=== PATIENT | male | born 1955 | race African-American/Black ===

== ENCOUNTER 2016-11-30 13:11 | Emergency (ER) | payer OTHER ==
[~2016-11-30] VITALS: Ht 160 cm; Wt 86.0 kg
[~2016-11-30 13:11] MED LIST: CLONIDINE; DEPAKOTE; METF500T4 PO
[2016-11-30] MEDS ORDERED: KETOROLAC 30MG/ML VIAL IM ONE (14:30)
[2016-11-30 14:55] VITALS: BP 133/82
== END 2016-11-30 15:04 | disposition home or self-care (01) ==
LOC: ER 14:54
DX: G62.9 Polyneuropathy, unspecified (principal); E11.9 Type 2 diabetes mellitus without complications; I10 Essential (primary) hypertension; M10.9 Gout, unspecified; F17.210 Nicotine dependence, cigarettes, uncomplicated; Z88.6 Allergy status to analgesic agent; Z79.4 Long term (current) use of insulin; Z79.899 Other long term (current) drug therapy
CPT/HCPCS: 96372; 99283; J1885

== ENCOUNTER 2017-01-04 08:53 | Emergency (ER) | payer OTHER ==
[~2017-01-04] VITALS: Ht 157.5 cm; Wt 91.0 kg
[2017-01-04 09:11] VITALS: BP 142/88
[2017-01-04] MEDS ORDERED: ALBUTEROL (0.083%) 2.5MG/3ML NEB HHN STA (09:26)
[2017-01-04] MEDS ORDERED: PREDNISONE 20MG TABLET PO STA (09:26)
[2017-01-04] MEDS ORDERED: IPRATROPIUM BROMIDE (0.02%) 0.5MG/2.5ML NEB HHN STA (09:26)
== END 2017-01-04 10:20 | disposition home or self-care (01) ==
LOC: ER 08:54
DX: J44.0 Chronic obstructive pulmonary disease with (acute) lower respiratory infection (principal); J20.9 Acute bronchitis, unspecified; I10 Essential (primary) hypertension; E11.9 Type 2 diabetes mellitus without complications; F17.200 Nicotine dependence, unspecified, uncomplicated
CPT/HCPCS: 71010; 94640; 99283; J7512; J7611

== ENCOUNTER 2017-03-23 10:39 | Emergency (ER) | payer OTHER ==
[~2017-03-23] VITALS: Ht 170.2 cm; Wt 80.0 kg
[2017-03-23 12:27] VITALS: BP 116/78
== END 2017-03-23 14:44 | disposition left against medical advice (07) ==
LOC: ER 13:49
DX: M54.5 Low back pain (principal); Z53.21 Procedure and treatment not carried out due to patient leaving prior to being seen by health care provider

== ENCOUNTER 2017-03-25 09:25 | Emergency (ER) | payer OTHER ==
[~2017-03-25] VITALS: Ht 177.8 cm; Wt 86.0 kg
[2017-03-25] MEDS ORDERED: IBUPROFEN 400MG TABLET PO ONE (11:00)
[2017-03-25] MEDS ORDERED: ACETAMINOPHEN 325MG TABLET PO ONE (11:00)
[2017-03-25 12:40] VITALS: BP 116/69
== END 2017-03-25 12:53 | disposition home or self-care (01) ==
LOC: ER 11:00
DX: M54.5 Low back pain (principal); I10 Essential (primary) hypertension; E11.42 Type 2 diabetes mellitus with diabetic polyneuropathy; Z79.84 Long term (current) use of oral hypoglycemic drugs; F17.210 Nicotine dependence, cigarettes, uncomplicated
CPT/HCPCS: 72100; 99284

== ENCOUNTER 2017-08-30 22:08 | Inpatient (IN) | payer MEDICAID ==
[~2017-08-30] VITALS: Ht 157.5 cm; Wt 88.0 kg
[~2017-08-30 22:08] MED LIST changes: -CLONIDINE; -DEPAKOTE
[2017-08-30] MEDS ORDERED: SODIUM CHLORIDE 0.9% 1,000 ML IV ONE (22:24)
[2017-08-30 22:59] LABS: BASOPHILS % 0.5 % (0.0-2.0); EOSINOPHILS % 0.1 % (0.0-5.0); HEMATOCRIT. 38.5 % (42.0-52.0); HEMOGLOBIN. 12.2 g/dL (14.0-18.0); LYMPHOCYTES % 15.8 % (20.0-50.0); MEAN CORPUSCULAR HEMOGLOBIN 25.5 pg (28.0-32.0); MEAN CORPUSCULAR VOLUME 80.8 fL (80.0-94.0); MEAN PLATELET VOLUME 9.1 fl (7.4-10.4); MONOCYTES % 12.3 % (2.0-8.0); NEUTROPHILS % 71.3 % (40.0-76.0); PLATELET 217 x1000/uL (130-400); RED BLOOD CELL COUNT 4.77 mill/uL (4.7-6.1); RED CELL DISTRIBUTION WIDTH 14.9 % (11.6-14.6)
[2017-08-30 23:08] LABS: CHLORIDE 106 mEq/L (98-107)
[2017-08-30 23:10] LABS: ETHANOL BLOOD < 10 mg/dL
[2017-08-30 23:16] LABS: TROPONIN I 0.03 ng/mL (0.00-0.04)
[2017-08-31] MEDS ORDERED: AZITHROMYCIN 500 MG in DEXT 5% WATER 250 ML IV SCH (00:30)
[2017-08-31] MEDS ORDERED: VANCOMYCIN 1,500 MG in DEXT 5% WATER 250 ML IV SCH (00:30)
[2017-08-31 01:09] LABS: CLARITY URINE CLEAR (CLEAR); COLOR URINE YELLOW (YELLOW); KETONES URINE NEGATIVE (NEGATIVE); LEUKOCYTE ESTERASE URINE NEGATIVE (NEGATIVE); NITRITE URINE NEGATIVE (NEGATIVE); OCCULT BLOOD URINE NEGATIVE (NEGATIVE); PROTEIN URINE NEGATIVE (NEGATIVE); SPECIFIC GRAVITY URINE 1.008 (1.005-1.030); UROBILINOGEN URINE 0.2 E.U./dL (0.2-1.0)
[2017-08-31 01:32] LABS: *AMPHETAMINES SCREEN URINE NEGATIVE (NEGATIVE); *BARBITURATES SCREEN URINE NEGATIVE (NEGATIVE); *BENZODIAZEPINES SCREEN URINE NEGATIVE (NEGATIVE); *COCAINE SCREEN URINE PRESUMTIVE POSITIVE (NEGATIVE); CANNABINOID URINE SCREEN NEGATIVE (NEGATIVE); METHADONE URINE SCREEN NEGATIVE (NEGATIVE); OPIATES URINE SCREEN NEGATIVE (NEGATIVE); PHENCYCLIDINE URINE SCREEN NEGATIVE (NEGATIVE)
[2017-08-31] MEDS ORDERED: VANCOMYCIN 1,500 MG in SODIUM CHLORIDE 0.9% 250 ML IV SCH (02:00)
[2017-08-31] MEDS ORDERED: PIPERACILLIN SODIUM/TAZOBACTAM 4.5 G in SODIUM CHLORIDE 0.9% 100 ML IV SCH (02:00)
[2017-08-31 06:00] VITALS: BP 130/73
[2017-08-31 08:00] VITALS: BP 127/67
[2017-08-31] MEDS ORDERED: ACETAMINOPHEN 325MG TABLET PO PRN (10:45)
[2017-08-31] MEDS ORDERED: CLONIDINE 0.1MG TABLET PO PRN (10:45)
[2017-08-31] MEDS ORDERED: IPRATROPIUM/ALBUTEROL 0.5-3(2.5)MG/3ML NEB INH PRN (10:45)
[2017-08-31] MEDS ORDERED: DIPHENHYDRAMINE 50MG/ML VIAL IV PRN (10:45)
[2017-08-31] MEDS ORDERED: HYDROCODONE/ACETAMINOPHEN 5/325MG TABLET PO PRN (10:45)
[2017-08-31] MEDS ORDERED: ONDANSETRON HCL 4MG/2ML VIAL IV PRN (10:45)
[2017-08-31 12:00] VITALS: BP 111/65
[2017-08-31] MEDS ORDERED: DEXTROSE 50% WATER 50ML SYRINGE IV PRN (12:30)
[2017-08-31] MEDS: PIPERACILLIN/TAZ 3.375G PREMIX 50 ML IV SCH ×2 (13:20→20:59)
[2017-08-31 16:00] VITALS: BP 111/65
[2017-08-31] MEDS: INSULIN LISPRO 100 UNITS/ML SUBCUT SCH ×2 (17:15→21:41)
[2017-08-31] MEDS: BLOOD SUGAR DIAGNOSTIC STRIP TEST SCH ×2 (17:35→21:01)
[2017-08-31 20:00] VITALS: BP 127/69
[2017-09-01] VITALS: BP 120/64
[2017-09-01] MEDS ORDERED: VANCOMYCIN 1 G PREMIX 200 ML IV SCH (02:00)
[2017-09-01] MEDS: PIPERACILLIN/TAZ 3.375G PREMIX 50 ML IV SCH (03:56)
[2017-09-01 04:00] VITALS: BP 121/62
[2017-09-01] MEDS: BLOOD SUGAR DIAGNOSTIC STRIP TEST SCH (05:58)
[2017-09-01] MEDS: INSULIN LISPRO 100 UNITS/ML SUBCUT SCH (06:20)
[2017-09-01 08:00] VITALS: BP 124/76
[2017-09-01] MEDS ORDERED: METFORMIN HCL 500MG TABLET PO SCH (09:00)
== END 2017-09-01 08:58 | disposition left against medical advice (07) | DRG 816 ==
LOC: ER 22:27 → 5WST 08-31 01:40 → ENRESERV 08-31 04:32
PROVIDERS: ADMIT Internal Medicine; ATTEND Internal Medicine
DX: T40.5X1A Poisoning by cocaine, accidental (unintentional), initial encounter (principal); J96.00 Acute respiratory failure, unspecified whether with hypoxia or hypercapnia; G92 Toxic encephalopathy; J18.9 Pneumonia, unspecified organism; E87.2 Acidosis; E11.22 Type 2 diabetes mellitus with diabetic chronic kidney disease; E66.9 Obesity, unspecified; F14.10 Cocaine abuse, uncomplicated; F17.210 Nicotine dependence, cigarettes, uncomplicated; Z53.21 Procedure and treatment not carried out due to patient leaving prior to being seen by health care provider; I12.9 Hypertensive chronic kidney disease with stage 1 through stage 4 chronic kidney disease, or unspecified chronic kidney disease; M10.9 Gout, unspecified; N18.9 Chronic kidney disease, unspecified; Y95 Nosocomial condition; Z79.84 Long term (current) use of oral hypoglycemic drugs; Z68.35 Body mass index [BMI] 35.0-35.9, adult; Z71.6 Tobacco abuse counseling
CPT/HCPCS: 36415; 70450; 71045; 80053; 80305; 80307; 80329; 81003; 82962; 83605; 84443; 84484; 85025; 86850; 86900; 87040; 93005; 96365; 96366; 96367; 99285; G0482; J0456; J1200; J1815; J2543; J3370; J7030; J7050; J7060

== ENCOUNTER 2018-08-19 08:40 | Emergency (ER) | payer MEDICAID ==
[~2018-08-19] VITALS: Ht 157.5 cm; Wt 82.0 kg
[~2018-08-19 08:40] MED LIST changes: +METF-414 PO; -METF500T4 PO
[2018-08-19] MEDS ORDERED: ACETAMINOPHEN 325MG TABLET PO ONE (13:45)
[2018-08-19 14:00] VITALS: BP 139/78
[2018-08-19 14:42] LABS: CLARITY URINE CLEAR (CLEAR); COLOR URINE YELLOW (YELLOW); KETONES URINE NEGATIVE (NEGATIVE); LEUKOCYTE ESTERASE URINE NEGATIVE (NEGATIVE); NITRITE URINE NEGATIVE (NEGATIVE); OCCULT BLOOD URINE NEGATIVE (NEGATIVE); PH URINE 6.5 (4.5-8.0); PROTEIN URINE NEGATIVE (NEGATIVE); UROBILINOGEN URINE 0.2 E.U./dL (0.2-1.0)
== END 2018-08-19 15:37 | disposition home or self-care (01) ==
LOC: ER 08:48
DX: M54.5 Low back pain (principal); E11.9 Type 2 diabetes mellitus without complications; F17.210 Nicotine dependence, cigarettes, uncomplicated; G62.9 Polyneuropathy, unspecified; Z79.84 Long term (current) use of oral hypoglycemic drugs; Z88.6 Allergy status to analgesic agent
CPT/HCPCS: 72100; 82962; 99284

== ENCOUNTER 2019-02-01 10:46 | Emergency (ER) | payer MEDICAID ==
[~2019-02-01] VITALS: Ht 157.5 cm; Wt 85.0 kg
[2019-02-01] MEDS ORDERED: HYDROCODONE/ACETAMINOPHEN 10/325MG TABLET PO ONE (12:15)
[2019-02-01 15:16] VITALS: BP 157/91
== END 2019-02-01 15:22 | disposition home or self-care (01) ==
LOC: ER 10:46
DX: S69.91XA Unspecified injury of right wrist, hand and finger(s), initial encounter (principal); E11.9 Type 2 diabetes mellitus without complications; E78.00 Pure hypercholesterolemia, unspecified; M10.9 Gout, unspecified; I10 Essential (primary) hypertension; F17.210 Nicotine dependence, cigarettes, uncomplicated; X58.XXXA Exposure to other specified factors, initial encounter; Y93.9 Activity, unspecified; Y92.9 Unspecified place or not applicable; Z88.6 Allergy status to analgesic agent
CPT/HCPCS: 73110; 73130; 99283

== ENCOUNTER 2019-02-19 10:42 | Emergency (ER) | payer MEDICAID ==
[~2019-02-19] VITALS: Ht 167.6 cm; Wt 84.0 kg
[2019-02-19 10:59] VITALS: BP 150/94
== END 2019-02-19 12:36 | disposition home or self-care (01) ==
LOC: ER 10:42
DX: M10.9 Gout, unspecified (principal); I10 Essential (primary) hypertension; E78.00 Pure hypercholesterolemia, unspecified; E11.9 Type 2 diabetes mellitus without complications; Z88.6 Allergy status to analgesic agent
CPT/HCPCS: 99282

== ENCOUNTER 2019-11-22 08:27 | Emergency (ER) | payer MEDICAID ==
[~2019-11-22] VITALS: Ht 157.5 cm; Wt 83.0 kg
[2019-11-22] MEDS ORDERED: BACITRACIN ZINC OINT UDPKT TOP ONE (09:00)
[2019-11-22] MEDS ORDERED: KETOROLAC 30MG/ML VIAL IM ONE (09:00)
[2019-11-22] MEDS ORDERED: TETANUS, DIPHTHERIA, PERTUSSIS VAC/PF 0.5ML (>7YR OLD) IM ONE (09:00)
[2019-11-22] MEDS ORDERED: AMOXICILLIN/POTASSIUM CLAVULANATE 500/125MG TAB PO ONE (09:30)
[2019-11-22 10:00] VITALS: BP 139/64
== END 2019-11-22 10:30 | disposition home or self-care (01) ==
LOC: ER 08:27
DX: S62.656A Nondisplaced fracture of middle phalanx of right little finger, initial encounter for closed fracture (principal); E11.9 Type 2 diabetes mellitus without complications; E78.00 Pure hypercholesterolemia, unspecified; I10 Essential (primary) hypertension; Z79.84 Long term (current) use of oral hypoglycemic drugs; W22.8XXA Striking against or struck by other objects, initial encounter; Y93.89 Activity, other specified; Y92.810 Car as the place of occurrence of the external cause
CPT/HCPCS: 29130; 73140; 90471; 90715; 96372; 99284; J1885

== ENCOUNTER 2021-02-04 18:41 | Emergency (ER) | payer MEDICAID ==
[~2021-02-04] VITALS: Ht 175.3 cm; Wt 80.0 kg
[2021-02-04 18:52] VITALS: BP 130/88
== END 2021-02-06 07:33 | disposition left against medical advice (07) ==
LOC: ER 18:41
DX: Z13.9 Encounter for screening, unspecified (principal)
CPT/HCPCS: 99283

== ENCOUNTER 2021-05-20 16:37 | Emergency (ER) | payer MEDICAID ==
[~2021-05-20] VITALS: Ht 170.2 cm; Wt 80.0 kg
[2021-05-20 18:09] LABS: BASOPHILS % 0.6 % (0.0-2.0); HEMATOCRIT. 32.7 % (42.0-52.0); HEMOGLOBIN. 10.4 g/dL (14.0-18.0); LYMPHOCYTES % 9.2 % (20.0-50.0); MEAN CORPUSCULAR HEMOGLOBIN 25.3 pg (28.0-32.0); MEAN CORPUSCULAR VOLUME 79.7 fL (80.0-94.0); MEAN PLATELET VOLUME 8.9 fl (7.4-10.4); MONOCYTES % 2.5 % (2.0-8.0); NEUTROPHILS % 87.7 % (40.0-76.0); PLATELET 250 x1000/uL (130-400); RED CELL DISTRIBUTION WIDTH 16.3 % (11.6-14.6)
[2021-05-20 18:14] LABS: CHLORIDE 107 mEq/L (98-107)
[2021-05-20 20:06] VITALS: BP 110/71
== END 2021-05-20 20:47 | disposition home or self-care (01) ==
LOC: ER 16:37
DX: R07.89 Other chest pain (principal); E11.9 Type 2 diabetes mellitus without complications; E78.00 Pure hypercholesterolemia, unspecified; I10 Essential (primary) hypertension
CPT/HCPCS: 36415; 71045; 80053; 83880; 84484; 85025; 93005; 99285

== ENCOUNTER 2021-08-12 11:41 | Emergency (ER) | payer MEDICAID, OTHER ==
[~2021-08-12] VITALS: Ht 177.8 cm; Wt 113.0 kg
[2021-08-12] MEDS ORDERED: ALBUTEROL (0.5%) 2.5MG/0.5ML NEB HHN ONE (12:30)
[2021-08-12 12:47] LABS: BASOPHILS % 0.7 % (0.0-2.0); EOSINOPHILS % 0.7 % (0.0-5.0); HEMATOCRIT. 35.2 % (42.0-52.0); HEMOGLOBIN. 11.2 g/dL (14.0-18.0); LYMPHOCYTES % 22.1 % (20.0-50.0); MEAN CORPUSCULAR VOLUME 78.5 fL (80.0-94.0); MEAN PLATELET VOLUME 8.7 fl (7.4-10.4); MONOCYTES % 10.7 % (2.0-8.0); NEUTROPHILS % 65.8 % (40.0-76.0); PLATELET 239 x1000/uL (130-400); RED BLOOD CELL COUNT 4.48 mill/uL (4.7-6.1); RED CELL DISTRIBUTION WIDTH 14.9 % (11.6-14.6)
[2021-08-12 12:56] LABS: CHLORIDE 109 mEq/L (98-107)
[2021-08-12 13:00] LABS: ETHANOL BLOOD < 10 mg/dL
[2021-08-12] MEDS ORDERED: FUROSEMIDE 40MG TABLET PO ONE (13:15)
[2021-08-12] MEDS ORDERED: ASPIRIN 81MG TABLET PO SCH (13:15)
[2021-08-12 14:40] LABS: CLARITY URINE CLEAR (CLEAR); COLOR URINE YELLOW (YELLOW); KETONES URINE TRACE (NEGATIVE); LEUKOCYTE ESTERASE URINE NEGATIVE (NEGATIVE); NITRITE URINE NEGATIVE (NEGATIVE); OCCULT BLOOD URINE NEGATIVE (NEGATIVE); PROTEIN URINE NEGATIVE (NEGATIVE); SPECIFIC GRAVITY URINE 1.022 (1.005-1.030)
[2021-08-12 15:02] LABS: *AMPHETAMINES SCREEN URINE NEGATIVE (NEGATIVE); *BARBITURATES SCREEN URINE NEGATIVE (NEGATIVE); *BENZODIAZEPINES SCREEN URINE NEGATIVE (NEGATIVE); *COCAINE SCREEN URINE PRESUMTIVE POSITIVE (NEGATIVE); METHADONE URINE SCREEN NEGATIVE (NEGATIVE); OPIATES URINE SCREEN NEGATIVE (NEGATIVE)
[2021-08-12 15:03] LABS: CANNABINOID URINE SCREEN NEGATIVE (NEGATIVE); PHENCYCLIDINE URINE SCREEN NEGATIVE (NEGATIVE)
[2021-08-12] MEDS ORDERED: ALBU05 NEB (15:23)
[2021-08-12 16:00] VITALS: BP 108/60
[2021-08-13] MEDS ORDERED: FUROSEMIDE 40MG/4ML VIAL IVP SCH (09:00)
== END 2021-08-12 16:05 | disposition home or self-care (01) ==
LOC: ER 11:41
DX: R06.03 Acute respiratory distress (principal); F14.10 Cocaine abuse, uncomplicated; Z72.0 Tobacco use
CPT/HCPCS: 36415; 71045; 80053; 80305; 80320; 81003; 83880; 84484; 85025; 93005; 94640; 99285; Z7610; G0480

== ENCOUNTER 2021-08-19 01:55 | Inpatient (IN) | payer OTHER ==
[~2021-08-19] VITALS: Ht 165.1 cm; Wt 92.5 kg
[~2021-08-19 01:55] MED LIST changes: +ALBU05 NEB
[2021-08-19] MEDS ORDERED: IPRATROPIUM BROMIDE (0.02%) 0.5MG/2.5ML NEB HHN STA (02:11)
[2021-08-19] MEDS ORDERED: METHYLPREDNISOLONE SOD SUCC 125 MG/2 ML VIAL IV STA (02:11)
[2021-08-19] MEDS ORDERED: MAGNESIUM 2 G PREMIX 50 ML IV ONE (02:15)
[2021-08-19] MEDS ORDERED: ALBUTEROL (0.083%) 2.5MG/3ML NEB HHN SCH (02:30)
[2021-08-19] MEDS ORDERED: METHYLPREDNISOLONE SOD SUCC 125 MG/2 ML VIAL IM ONE (03:45)
[2021-08-19 04:16] LABS: BASOPHILS % 0.5 % (0.0-2.0); EOSINOPHILS % 0.5 % (0.0-5.0); HEMATOCRIT. 32.5 % (42.0-52.0); HEMOGLOBIN. 10.3 g/dL (14.0-18.0); LYMPHOCYTES % 27.3 % (20.0-50.0); MEAN CORPUSCULAR HEMOGLOBIN 25.3 pg (28.0-32.0); MEAN CORPUSCULAR VOLUME 79.6 fL (80.0-94.0); MEAN PLATELET VOLUME 9.1 fl (7.4-10.4); MONOCYTES % 9.9 % (2.0-8.0); NEUTROPHILS % 61.8 % (40.0-76.0); PLATELET 186 x1000/uL (130-400); RED BLOOD CELL COUNT 4.08 mill/uL (4.7-6.1); RED CELL DISTRIBUTION WIDTH 15.6 % (11.6-14.6)
[2021-08-19 04:23] LABS: CHLORIDE 111 mEq/L (98-107)
[2021-08-19 06:30] VITALS: BP 150/86
[2021-08-19] MEDS ORDERED: HYDROCODONE/ACETAMINOPHEN 5/325MG TABLET PO PRN (07:15)
[2021-08-19] MEDS: INSULIN LISPRO 100 UNITS/ML SUBCUT SCH ×4 (07:15→20:59)
[2021-08-19] MEDS ORDERED: DEXTROSE 50% WATER 50ML SYRINGE IV PRN (07:15)
[2021-08-19 08:00] VITALS: BP 136/72
[2021-08-19] MEDS ORDERED: NALOXONE HCL 0.4MG/ML VIAL IV PRN ×2 (08:00)
[2021-08-19] MEDS ORDERED: IPRATROPIUM/ALBUTEROL 0.5-3(2.5)MG/3ML NEB HHN SCH (08:00)
[2021-08-19] MEDS ORDERED: NON FORMULARY PATIENT HOME MED XX SCH (09:00)
[2021-08-19] MEDS: CARVEDILOL 3.125 MG TABLET PO SCH ×2 (09:41→20:58)
[2021-08-19] MEDS: LISINOPRIL 20MG TABLET PO SCH (09:41)
[2021-08-19] MEDS: BLOOD SUGAR DIAGNOSTIC STRIP TEST SCH ×3 (12:13→20:59)
[2021-08-19 16:00] VITALS: BP 147/81
[2021-08-19] MEDS: ALBUTEROL (0.083%) 2.5MG/3ML NEB HHN SCH (16:05)
[2021-08-19] MEDS: BUDESONIDE 0.5MG/2ML NEB HHN SCH (16:06)
[2021-08-19] MEDS: FUROSEMIDE 40MG/4ML VIAL IVP SCH (17:46)
[2021-08-19 19:53] VITALS: BP 135/61
[2021-08-19] MEDS ORDERED: ENOXAPARIN 40MG/0.4ML SYR SUBCUT SCH (20:00)
[2021-08-20] VITALS: BP 122/83
[2021-08-20 04:00] VITALS: BP 129/74
[2021-08-20] MEDS: FUROSEMIDE 40MG/4ML VIAL IVP SCH (06:31)
[2021-08-20] MEDS: INSULIN LISPRO 100 UNITS/ML SUBCUT SCH (06:31)
[2021-08-20] MEDS: BLOOD SUGAR DIAGNOSTIC STRIP TEST SCH (06:31)
[2021-08-20 08:00] VITALS: BP 120/60
[2021-08-20] MEDS: CARVEDILOL 3.125 MG TABLET PO SCH (08:46)
[2021-08-20] MEDS: LISINOPRIL 20MG TABLET PO SCH (08:46)
[2021-08-20 09:21] VITALS: BP 120/60
[2021-08-20] MEDS: ALBUTEROL (0.083%) 2.5MG/3ML NEB HHN SCH (09:30)
[2021-08-20] MEDS: BUDESONIDE 0.5MG/2ML NEB HHN SCH (09:30)
[2021-08-20] MEDS ORDERED: IPRA3AMP9 NEB (10:20)
== END 2021-08-20 11:10 | disposition home or self-care (01) | DRG 811 ==
LOC: ER 01:55 → MICUSO 03:12 → EDBEDREQTM 03:15 → EDBEDREQ 03:15 → 5WST 04:35
PROVIDERS: ADMIT Internal Medicine; ATTEND Internal Medicine
DX: T78.40XA Allergy, unspecified, initial encounter (principal); N17.0 Acute kidney failure with tubular necrosis; E44.1 Mild protein-calorie malnutrition; J44.1 Chronic obstructive pulmonary disease with (acute) exacerbation; E11.9 Type 2 diabetes mellitus without complications; D64.9 Anemia, unspecified; E66.9 Obesity, unspecified; Z68.33 Body mass index [BMI] 33.0-33.9, adult; E78.00 Pure hypercholesterolemia, unspecified; I50.9 Heart failure, unspecified; I11.0 Hypertensive heart disease with heart failure; E87.8 Other disorders of electrolyte and fluid balance, not elsewhere classified; Z20.822 Contact with and (suspected) exposure to COVID-19; R74.01 Elevation of levels of liver transaminase levels; I25.10 Atherosclerotic heart disease of native coronary artery without angina pectoris; E78.5 Hyperlipidemia, unspecified; F14.90 Cocaine use, unspecified, uncomplicated; F17.210 Nicotine dependence, cigarettes, uncomplicated; X58.XXXA Exposure to other specified factors, initial encounter; Z79.899 Other long term (current) drug therapy; Z71.51 Drug abuse counseling and surveillance of drug abuser; Z71.3 Dietary counseling and surveillance; Z95.1 Presence of aortocoronary bypass graft
CPT/HCPCS: 36415; 71045; 80053; 82962; 83036; 83880; 84484; 85025; 87426; 93005; 93306; 99285; J1650; J1815; J1940; J2930; J7626

== ENCOUNTER 2021-08-24 11:18 | Emergency (ER) | payer OTHER ==
[~2021-08-24] VITALS: Ht 172.7 cm; Wt 86.0 kg
[~2021-08-24 11:18] MED LIST changes: +IPRA3AMP9 NEB
[2021-08-24] MEDS ORDERED: IPRATROPIUM BROMIDE (0.02%) 0.5MG/2.5ML NEB HHN STA (11:25)
[2021-08-24] MEDS ORDERED: METHYLPREDNISOLONE SOD SUCC 125 MG/2 ML VIAL IV STA (11:25)
[2021-08-24] MEDS ORDERED: MAGNESIUM 2 G PREMIX 50 ML IV ONE (11:30)
[2021-08-24] MEDS: ALBUTEROL (0.083%) 2.5MG/3ML NEB HHN SCH ×3 (11:35→12:11)
[2021-08-24 12:24] LABS: BASOPHILS % 0.4 % (0.0-2.0); EOSINOPHILS % 0.4 % (0.0-5.0); HEMATOCRIT. 37.3 % (42.0-52.0); HEMOGLOBIN. 11.8 g/dL (14.0-18.0); LYMPHOCYTES % 17.2 % (20.0-50.0); MEAN CORPUSCULAR HEMOGLOBIN 25.2 pg (28.0-32.0); MEAN CORPUSCULAR VOLUME 79.9 fL (80.0-94.0); MEAN PLATELET VOLUME 9.2 fl (7.4-10.4); MONOCYTES % 10.5 % (2.0-8.0); NEUTROPHILS % 71.5 % (40.0-76.0); PLATELET 189 x1000/uL (130-400); RED BLOOD CELL COUNT 4.67 mill/uL (4.7-6.1); RED CELL DISTRIBUTION WIDTH 15.6 % (11.6-14.6)
[2021-08-24 12:31] LABS: PROTHROMBIN TIME 10.3 sec (9.6-11.0)
[2021-08-24 12:36] LABS: CHLORIDE 113 mEq/L (98-107)
[2021-08-24 13:00] VITALS: BP 153/77
[2021-08-24] MEDS ORDERED: PIPERACILLIN/TAZ 3.375G PREMIX 50 ML IV SCH (13:00)
[2021-08-24] MEDS ORDERED: FUROSEMIDE 40MG/4ML VIAL IVP NR (13:00)
[2021-08-24 14:14] LABS: CLARITY URINE CLEAR (CLEAR); COLOR URINE YELLOW (YELLOW); KETONES URINE NEGATIVE (NEGATIVE); LEUKOCYTE ESTERASE URINE NEGATIVE (NEGATIVE); NITRITE URINE NEGATIVE (NEGATIVE); OCCULT BLOOD URINE NEGATIVE (NEGATIVE); PH URINE 5.5 (4.5-8.0); PROTEIN URINE NEGATIVE (NEGATIVE); SPECIFIC GRAVITY URINE 1.021 (1.005-1.030); UROBILINOGEN URINE 0.2 E.U./dL (0.2-1.0)
[2021-08-29] MEDS ORDERED: CLOP75TA15 PO (12:44)
[2021-08-29] MEDS ORDERED: DILT120C11 MT (12:44)
[2021-08-29] MEDS ORDERED: ASPI-1497 MT (12:44)
== END 2021-08-24 14:15 | disposition left against medical advice (07) ==
LOC: ER 11:31
DX: A41.9 Sepsis, unspecified organism (principal); J44.1 Chronic obstructive pulmonary disease with (acute) exacerbation; R06.03 Acute respiratory distress; I11.0 Hypertensive heart disease with heart failure; I50.9 Heart failure, unspecified; I25.10 Atherosclerotic heart disease of native coronary artery without angina pectoris; E11.9 Type 2 diabetes mellitus without complications; E78.00 Pure hypercholesterolemia, unspecified; N28.9 Disorder of kidney and ureter, unspecified; F17.210 Nicotine dependence, cigarettes, uncomplicated; D50.9 Iron deficiency anemia, unspecified; Z95.1 Presence of aortocoronary bypass graft; Z99.81 Dependence on supplemental oxygen; Z79.84 Long term (current) use of oral hypoglycemic drugs
CPT/HCPCS: 36415; 71045; 80053; 81003; 83605; 83880; 84145; 84484; 85025; 85610; 87040; 87086; 93005; 94640; 96365; 96375; 99291; J1940; J2930; J3475; Z7610

== ENCOUNTER 2021-09-09 10:46 | Emergency (ER) | payer OTHER ==
[~2021-09-09] VITALS: Ht 160 cm; Wt 86.0 kg
[~2021-09-09 10:46] MED LIST changes: +ASPI-1497 MT; +CLOP75TA15 PO; +DILT120C11 MT
[2021-09-09] MEDS ORDERED: COLC0.6C3 MT (11:26)
[2021-09-09] MEDS ORDERED: HYDR-4001 MT (11:26)
[2021-09-09] MEDS ORDERED: COLCHICINE 0.6MG TABLET PO ONE (11:30)
[2021-09-09] MEDS ORDERED: HYDROCODONE/ACETAMINOPHEN 5/325MG TABLET PO ONE (11:30)
[2021-09-09 12:40] VITALS: BP 144/88
== END 2021-09-09 12:20 | disposition home or self-care (01) ==
LOC: ER 10:46
DX: M79.642 Pain in left hand (principal); F14.10 Cocaine abuse, uncomplicated; J44.1 Chronic obstructive pulmonary disease with (acute) exacerbation; E11.9 Type 2 diabetes mellitus without complications; I10 Essential (primary) hypertension; Z98.890 Other specified postprocedural states
CPT/HCPCS: 99283

== ENCOUNTER 2021-09-14 15:59 | Inpatient (IN) | payer OTHER ==
[~2021-09-14] VITALS: Ht 172.7 cm; Wt 100.0 kg
[~2021-09-14 15:59] MED LIST changes: +COLC0.6C3 MT; +HYDR-4001 MT
[2021-09-14] MEDS ORDERED: ALBUTEROL (0.083%) 2.5MG/3ML NEB HHN STA (17:12)
[2021-09-14] MEDS ORDERED: IPRATROPIUM BROMIDE (0.02%) 0.5MG/2.5ML NEB HHN STA (17:12)
[2021-09-14] MEDS ORDERED: METHYLPREDNISOLONE SOD SUCC 125 MG/2 ML VIAL IV STA (17:12)
[2021-09-14] MEDS ORDERED: MAGNESIUM 2 G PREMIX 50 ML IV ONE (17:15)
[2021-09-14] MEDS ORDERED: CEFTRIAXONE 1 G PREMIX 50 ML IV ONE (17:30)
[2021-09-14] MEDS ORDERED: AZITHROMYCIN 500MG/250ML 250 ML IV ONE (17:30)
[2021-09-14 18:53] LABS: BASOPHILS % 0.9 % (0.0-2.0); EOSINOPHILS % 0.8 % (0.0-5.0); HEMATOCRIT. 34.6 % (42.0-52.0); HEMOGLOBIN. 11.3 g/dL (14.0-18.0); LYMPHOCYTES % 26.6 % (20.0-50.0); MEAN CORPUSCULAR HEMOGLOBIN 25.1 pg (28.0-32.0); MEAN CORPUSCULAR VOLUME 76.6 fL (80.0-94.0); MEAN PLATELET VOLUME 8.8 fl (7.4-10.4); MONOCYTES % 12.7 % (2.0-8.0); PLATELET 257 x1000/uL (130-400); RED BLOOD CELL COUNT 4.52 mill/uL (4.7-6.1); RED CELL DISTRIBUTION WIDTH 15.3 % (11.6-14.6)
[2021-09-14 18:56] LABS: CHLORIDE 107 mEq/L (98-107)
[2021-09-14] MEDS ORDERED: FUROSEMIDE 20MG/2ML VIAL IVP ONE (20:00)
[2021-09-15 08:34] VITALS: BP 122/84
== END 2021-09-15 08:46 | disposition left against medical advice (07) | DRG 140 ==
LOC: ER 15:59 → EDBEDREQ 18:49 → MICUSO 20:00 → EDBEDREQTM 20:02 → EDBEDREQ 20:02 → EDBEDREQSVC 20:02
PROVIDERS: ADMIT Internal Medicine; ATTEND Internal Medicine
DX: J44.1 Chronic obstructive pulmonary disease with (acute) exacerbation (principal); J96.00 Acute respiratory failure, unspecified whether with hypoxia or hypercapnia; I13.0 Hypertensive heart and chronic kidney disease with heart failure and stage 1 through stage 4 chronic kidney disease, or unspecified chronic kidney disease; I50.22 Chronic systolic (congestive) heart failure; E11.22 Type 2 diabetes mellitus with diabetic chronic kidney disease; Z20.822 Contact with and (suspected) exposure to COVID-19; E78.00 Pure hypercholesterolemia, unspecified; F14.90 Cocaine use, unspecified, uncomplicated; F17.200 Nicotine dependence, unspecified, uncomplicated; N18.9 Chronic kidney disease, unspecified; Z53.29 Procedure and treatment not carried out because of patient's decision for other reasons; Y92.89 Other specified places as the place of occurrence of the external cause
CPT/HCPCS: 36415; 71045; 80053; 82962; 83880; 84484; 85025; 87426; 93005; 94640; J0456; J0696; J1940; J2930; J3475

== ENCOUNTER 2021-09-19 14:32 | Emergency (ER) | payer OTHER ==
[~2021-09-19] VITALS: Ht 160 cm; Wt 81.0 kg
[2021-09-19] MEDS ORDERED: IPRATROPIUM BROMIDE (0.02%) 0.5MG/2.5ML NEB HHN STA (15:09)
[2021-09-19] MEDS ORDERED: ALBUTEROL (0.083%) 2.5MG/3ML NEB HHN STA (15:09)
[2021-09-19] MEDS ORDERED: METHYLPREDNISOLONE SOD SUCC 125 MG/2 ML VIAL IV STA (15:09)
[2021-09-19] MEDS ORDERED: ASPIRIN 81MG TABLET PO ONE (15:15)
[2021-09-19] MEDS ORDERED: NITROGLYCERIN OINT 1GM/INCH UDPKT TD ONE (15:15)
[2021-09-19 15:24] LABS: BASOPHILS % 0.7 % (0.0-2.0); EOSINOPHILS % 0.8 % (0.0-5.0); HEMATOCRIT. 34.7 % (42.0-52.0); HEMOGLOBIN. 11.4 g/dL (14.0-18.0); LYMPHOCYTES % 21.3 % (20.0-50.0); MEAN CORPUSCULAR HEMOGLOBIN 25.3 pg (28.0-32.0); MEAN CORPUSCULAR VOLUME 77.4 fL (80.0-94.0); MONOCYTES % 6.8 % (2.0-8.0); NEUTROPHILS % 70.4 % (40.0-76.0); PLATELET 285 x1000/uL (130-400); RED BLOOD CELL COUNT 4.48 mill/uL (4.7-6.1); RED CELL DISTRIBUTION WIDTH 15.4 % (11.6-14.6)
[2021-09-19 15:30] LABS: CHLORIDE 103 mEq/L (98-107)
[2021-09-19] MEDS ORDERED: INSULIN REGULAR (HUMULIN R) 300UNITS/3ML VIAL SUBCUT NR (16:00)
[2021-09-19] MEDS ORDERED: ALBU90AE INH (16:32)
[2021-09-19] MEDS ORDERED: P20 MT (16:32)
[2021-09-19 16:47] LABS: *AMPHETAMINES SCREEN URINE NEGATIVE (NEGATIVE); *BARBITURATES SCREEN URINE NEGATIVE (NEGATIVE)
[2021-09-19 16:48] LABS: *BENZODIAZEPINES SCREEN URINE NEGATIVE (NEGATIVE); *COCAINE SCREEN URINE PRESUMTIVE POSITIVE (NEGATIVE); METHADONE URINE SCREEN NEGATIVE (NEGATIVE); OPIATES URINE SCREEN NEGATIVE (NEGATIVE); PHENCYCLIDINE URINE SCREEN NEGATIVE (NEGATIVE)
[2021-09-19 16:49] LABS: CANNABINOID URINE SCREEN NEGATIVE (NEGATIVE)
[2021-09-19 16:51] VITALS: BP 110/63
[2021-09-23] MEDS ORDERED: P20 MT (11:36)
[2021-09-23] MEDS ORDERED: GUAI600T26 MT (11:36)
[2021-09-23] MEDS ORDERED: ALBU90AE INH (11:36)
[2021-09-23] MEDS ORDERED: IPRA3AMP9 NEB (11:36)
[2021-09-23] MEDS ORDERED: FURO-152 MT (11:37)
[2021-09-23] MEDS ORDERED: LOSA25TA26 MT (11:37)
[2021-09-23] MEDS ORDERED: CARV12.545 MT (11:37)
== END 2021-09-19 16:54 | disposition home or self-care (01) ==
LOC: ER 14:58
DX: J44.1 Chronic obstructive pulmonary disease with (acute) exacerbation (principal); E11.65 Type 2 diabetes mellitus with hyperglycemia; N28.9 Disorder of kidney and ureter, unspecified; D50.9 Iron deficiency anemia, unspecified; E78.00 Pure hypercholesterolemia, unspecified; I25.10 Atherosclerotic heart disease of native coronary artery without angina pectoris; F14.10 Cocaine abuse, uncomplicated; I10 Essential (primary) hypertension; F17.210 Nicotine dependence, cigarettes, uncomplicated; Z79.84 Long term (current) use of oral hypoglycemic drugs; Z95.1 Presence of aortocoronary bypass graft; Z79.82 Long term (current) use of aspirin
CPT/HCPCS: 36415; 71045; 80053; 80305; 82962; 83690; 83880; 84484; 85025; 85379; 93005; 94640; 96374; 99285; J1815; J2930

== ENCOUNTER 2024-03-06 02:39 | Inpatient (IN) | payer MEDICARE, MEDICAID ==
[~2024-03-06] VITALS: Ht 160 cm; Wt 79.5 kg
[~2024-03-06 02:39] MED LIST changes: +ALBU90AE INH; +AMLO2.5T45 PO; +ATOR20TA PO; +CARV12.545 MT; +CLOP-31 MT; -COLC0.6C3 MT; -DILT120C11 MT; +FURO-152 MT; +GUAI600T26 MT; +LOSA25TA26 MT; +P20 MT
[2024-03-06] MEDS: ASPIRIN 325MG EC TABLET PO NR (03:32)
[2024-03-06 03:40] VITALS: PULSE 94; RESP 22; O2SAT 98
[2024-03-06] MEDS: ALBUTEROL (0.5%) 2.5MG/0.5ML NEB HHN NR (03:40)
[2024-03-06] MEDS: MORPHINE SULFATE 4 MG/ML INJ (FOR IV/IM USE) IV ONE (03:45)
[2024-03-06] MEDS: NITROGLYCERIN 0.4MG TABLET SL SL ONE (03:48)
[2024-03-06 03:58] LABS: BASOPHILS % 0.6 % (0.0-2.0); DIFFERENTIAL COMMENT 0; EOSINOPHILS % 0.7 % (0.0-5.0); HEMOGLOBIN. 12.4 g/dL (14.0-18.0); MEAN CORPUSCULAR HEMOGLOBIN 24.9 pg (28.0-32.0); MEAN CORPUSCULAR HGB CONC 31.9 g/dL (31.0-37.0); MEAN PLATELET VOLUME 8.5 fl (7.4-10.4); MONOCYTES % 11.7 % (2.0-8.0); PLATELET 250 x1000/uL (130-400); RED BLOOD CELL COUNT 4.99 mill/uL (4.7-6.1); RED CELL DISTRIBUTION WIDTH 17.1 % (11.6-14.6)
[2024-03-06 04:10] LABS: PARTIAL THROMBOPLASTIN TIME 25.4 sec (23.4-31.0)
[2024-03-06 04:19] LABS: CARBON DIOXIDE 21 mEq/L (21-32); CHLORIDE 106 mEq/L (98-107); POTASSIUM 4.3 mEq/L (3.5-5.1); SODIUM 140 mEq/L (136-145)
[2024-03-06 04:20] LABS: CALCIUM 10.3 mg/dL (8.7-10.4)
[2024-03-06 04:25] LABS: ETHANOL BLOOD 34 mg/dL (<10); GLUCOSE 109 mg/dL (70-105); TROPONIN I HIGH SENSITIVITY 41 ng/L (3.0-53); UREA NITROGEN BLOOD 21 mg/dL (9-23)
[2024-03-06 04:52] LABS: CREATININE 1.6 mg/dL (0.6-1.3)
[2024-03-06] MEDS ORDERED: ONDANSETRON HCL 4MG/2ML INJ IV PRN (06:30)
[2024-03-06] MEDS ORDERED: IPRATROPIUM/ALBUTEROL 0.5-3(2.5)MG/3ML NEB NEB PRN (06:30)
[2024-03-06] MEDS ORDERED: ZOLPIDEM TARTRATE 5MG TABLET PO PRN (06:30)
[2024-03-06] MEDS ORDERED: GUAIFENESIN 200MG/10ML SUGAR FREE UDC PO PRN (06:30)
[2024-03-06] MEDS ORDERED: DOCUSATE SODIUM 100MG CAPSULE PO PRN (06:30)
[2024-03-06] MEDS ORDERED: ACETAMINOPHEN 325MG TABLET PO PRN ×2 (06:30)
[2024-03-06] MEDS ORDERED: CLONIDINE 0.1MG TABLET PO PRN (06:30)
[2024-03-06] MEDS ORDERED: DEXTROSE 50% WATER 50ML SYRINGE IV PRN (06:30)
[2024-03-06] MEDS: SUCRALFATE 1G TABLET PO SCH (06:57)
[2024-03-06] MEDS: BLOOD SUGAR DIAGNOSTIC STRIP TEST SCH (08:23)
[2024-03-06] MEDS: INSULIN LISPRO 100 UNITS/ML SUBCUT SCH (08:24)
[2024-03-06 08:45] LABS: IRON 61 ug/dL (65-175)
[2024-03-06 08:46] LABS: TRIGLYCERIDE 226 mg/dL (0-150)
[2024-03-06 08:47] LABS: LDL CHOLESTEROL 141 mg/dL (5-100)
[2024-03-06 08:48] LABS: CHOLESTEROL 208 mg/dL (<200); HDL CHOLESTEROL 34 mg/dL (>55); TOTAL IRON BINDING CAPACITY 371 ug/dl (250-425)
[2024-03-06 08:52] LABS: FOLIC ACID (FOLATE) SERUM > 20.00 ng/mL (>5.38)
[2024-03-06 08:53] LABS: T4 FREE 1.56 ng/dL (0.89-1.76); THYROID STIMULATING HORMONE 1.11 uIU/mL (0.55-4.78)
[2024-03-06 09:24] LABS: VITAMIN B12 SERUM 766 pg/mL (211-911)
[2024-03-06] MEDS: FAMOTIDINE 20MG TABLET PO SCH (10:41)
[2024-03-06] MEDS: CLOPIDOGREL 75MG TABLET PO SCH (10:41)
[2024-03-06] MEDS: ASPIRIN 81MG EC TABLET PO SCH (10:41)
[2024-03-06] MEDS: LOSARTAN 50 MG TABLET PO SCH (10:41)
[2024-03-06] MEDS: THIAMINE HCL 100MG TABLET PO SCH (10:41)
[2024-03-06] MEDS: MULTIVITAMINS,THER W-MINERALS TABLET PO SCH (10:41)
[2024-03-06] MEDS: FOLIC ACID 1MG TABLET PO SCH (10:41)
[2024-03-06] MEDS: ENOXAPARIN 40MG/0.4ML SYR SUBCUT SCH (10:42)
[2024-03-06 16:00] VITALS: BP 119/76; PULSE 79; RESP 16; TEMP 36.55848; O2SAT 99
[2024-03-06] MEDS: NITROGLYCERIN 0.4MG TABLET SL SL PRN (16:16)
[2024-03-06] MEDS: KETOROLAC 30MG/ML VIAL IV PRN (16:30)
[2024-03-06] MEDS: HYDROCODONE/ACETAMINOPHEN 5/325MG TABLET PO PRN (17:16)
[2024-03-06 17:30] VITALS: BP 109/68; PULSE 68; RESP 21; TEMP 36.9184
[2024-03-06 20:00] VITALS: BP 115/72; PULSE 74; RESP 13; TEMP 36.61404; O2SAT 98
[2024-03-06 22:43] LABS: CREATINE KINASE MB FRACTION 2.3 ng/mL (0.5-3.6)
[2024-03-07] VITALS: BP 108/63; PULSE 79; RESP 22; TEMP 36.78072; O2SAT 98
[2024-03-07 01:30] LABS: CREATINE KINASE MB FRACTION 2.1 ng/mL (0.5-3.6)
[2024-03-07 04:00] VITALS: BP 126/67; PULSE 82; RESP 12; TEMP 36.78072; O2SAT 98
[2024-03-07 06:22] LABS: *AMPHETAMINES SCREEN URINE NEGATIVE (NEGATIVE); *BARBITURATES SCREEN URINE NEGATIVE (NEGATIVE); *BENZODIAZEPINES SCREEN URINE NEGATIVE (NEGATIVE)
[2024-03-07 06:23] LABS: *COCAINE SCREEN URINE PRESUMPTIVE POSITIVE (NEGATIVE); CANNABINOID URINE SCREEN NEGATIVE (NEGATIVE); ECSTASY MDMA SCREEN URINE NEGATIVE (NEGATIVE); METHADONE URINE SCREEN NEGATIVE (NEGATIVE); OPIATES URINE SCREEN PRESUMPTIVE POSITIVE (NEGATIVE); PHENCYCLIDINE URINE SCREEN NEGATIVE (NEGATIVE)
[2024-03-07 08:00] VITALS: BP 143/79; PULSE 69; RESP 12; TEMP 37.00296; O2SAT 100
[2024-03-07 12:00] VITALS: BP 111/68; PULSE 69; RESP 16; TEMP 36.50292; O2SAT 99
[2024-03-07 16:00] VITALS: BP 110/63; PULSE 72; RESP 24; TEMP 36.83628; O2SAT 98
[2024-03-07 18:34] LABS: BASOPHILS % 0.3 % (0.0-2.0); DIFFERENTIAL COMMENT 0; HEMATOCRIT. 41.3 % (42.0-52.0); MEAN CORPUSCULAR HEMOGLOBIN 24.9 pg (28.0-32.0); MEAN CORPUSCULAR HGB CONC 31.4 g/dL (31.0-37.0); MEAN CORPUSCULAR VOLUME 79.4 fL (80.0-94.0); MEAN PLATELET VOLUME 9.1 fl (7.4-10.4); NEUTROPHILS % 51.7 % (40.0-76.0); PLATELET 237 x1000/uL (130-400); RED CELL DISTRIBUTION WIDTH 16.8 % (11.6-14.6); WHITE BLOOD COUNT 6.1 x1000/uL (4.5-11.0)
[2024-03-07 18:49] LABS: CHLORIDE 107 mEq/L (98-107); POTASSIUM 4.4 mEq/L (3.5-5.1); SODIUM 139 mEq/L (136-145)
[2024-03-07 18:50] LABS: CARBON DIOXIDE 25 mEq/L (21-32)
[2024-03-07 18:51] LABS: CALCIUM 9.4 mg/dL (8.7-10.4)
[2024-03-07 18:55] LABS: CREATININE 1.6 mg/dL (0.6-1.3); GLUCOSE 84 mg/dL (70-105)
[2024-03-07 18:56] LABS: UREA NITROGEN BLOOD 21 mg/dL (9-23)
[2024-03-07 18:57] LABS: ALANINE AMINOTRANSFERASE 17 IU/L (10-49); ALBUMIN 4.2 g/dL (3.2-4.8)
[2024-03-07 18:58] LABS: ASPARTATE AMINOTRANSFERASE 20 IU/L (<34); BILIRUBIN TOTAL 0.2 mg/dL (0.1-1.0); PHOSPHORUS 3.6 mg/dL (2.5-4.9); PROTEIN TOTAL 7.9 g/dL (6.0-8.3)
[2024-03-07 20:00] VITALS: BP 80/56; PULSE 77; RESP 19; TEMP 36.50292; O2SAT 98
[2024-03-08] VITALS: BP 126/74; PULSE 84; RESP 18; TEMP 36.61404; O2SAT 99
[2024-03-08 04:00] VITALS: BP 93/63; PULSE 78; RESP 17; TEMP 36.78072; O2SAT 98
[2024-03-08] MEDS: MAGNESIUM/ALUMINUM HYDROXIDE/SIMETHICONE 30ML UDC PO PRN (04:26)
[2024-03-08 08:00] VITALS: BP 102/90; PULSE 77; RESP 18; TEMP 37.16964; O2SAT 96
[2024-03-08 09:49] VITALS: BP 102/90; PULSE 77; TEMP 98.9; O2SAT 96
== END 2024-03-08 12:30 | disposition home or self-care (01) | DRG 241 ==
LOC: ER 02:39 → 5WST 04:12 → EDBEDREQTM 04:16 → EDBEDREQ 04:16 → 3WST 16:02
PROVIDERS: ADMIT Internal Medicine; ATTEND Internal Medicine
DX: K29.70 Gastritis, unspecified, without bleeding (principal); N17.9 Acute kidney failure, unspecified; D63.8 Anemia in other chronic diseases classified elsewhere; I50.9 Heart failure, unspecified; I11.0 Hypertensive heart disease with heart failure; I25.10 Atherosclerotic heart disease of native coronary artery without angina pectoris; E11.9 Type 2 diabetes mellitus without complications; E78.00 Pure hypercholesterolemia, unspecified; R07.89 Other chest pain; F10.129 Alcohol abuse with intoxication, unspecified; J44.9 Chronic obstructive pulmonary disease, unspecified; R53.81 Other malaise; T51.0X1A Toxic effect of ethanol, accidental (unintentional), initial encounter; F17.210 Nicotine dependence, cigarettes, uncomplicated; Z95.1 Presence of aortocoronary bypass graft; Z79.02 Long term (current) use of antithrombotics/antiplatelets; Z79.4 Long term (current) use of insulin; Z79.82 Long term (current) use of aspirin; Z95.5 Presence of coronary angioplasty implant and graft; Y92.89 Other specified places as the place of occurrence of the external cause
CPT/HCPCS: 36415; 71045; 80048; 80053; 80061; 80305; 80320; 82550; 82553; 82607; 82746; 82962; 83036; 83540; 83550; 83735; 83880; 84100; 84439; 84443; 84484; 85025; 93005; 93306; 93970; 94640; 99285; J1650; J1815; J1885; J2270; G0480

== ENCOUNTER 2024-06-15 20:04 | Inpatient (IN) | payer MEDICARE, MEDICAID ==
[~2024-06-15] VITALS: Ht 160 cm; Wt 38256.1 kg
[2024-06-15 22:50] LABS: BASOPHILS % 0.1 % (0.0-2.0); DIFFERENTIAL COMMENT 0; EOSINOPHILS % 1.4 % (0.0-5.0); HEMATOCRIT. 38.8 % (42.0-52.0); HEMOGLOBIN. 11.9 g/dL (14.0-18.0); LYMPHOCYTES % 24.2 % (20.0-50.0); MEAN CORPUSCULAR HEMOGLOBIN 24.7 pg (28.0-32.0); MEAN CORPUSCULAR HGB CONC 30.7 g/dL (31.0-37.0); MEAN CORPUSCULAR VOLUME 80.3 fL (80.0-94.0); MEAN PLATELET VOLUME 8.2 fl (7.4-10.4); MONOCYTES % 5.5 % (2.0-8.0); NEUTROPHILS % 68.8 % (40.0-76.0); PLATELET 184 x1000/uL (130-400); RED BLOOD CELL COUNT 4.84 mill/uL (4.7-6.1); RED CELL DISTRIBUTION WIDTH 18.2 % (11.6-14.6); WHITE BLOOD COUNT 13.6 x1000/uL (4.5-11.0)
[2024-06-15 22:59] LABS: INR 0.9; PARTIAL THROMBOPLASTIN TIME 23.2 sec (23.4-31.0); PROTHROMBIN TIME 10.5 sec (9.6-11.0)
[2024-06-15 23:02] LABS: CHLORIDE 104 mEq/L (98-107); SODIUM 138 mEq/L (136-145)
[2024-06-15 23:03] LABS: CARBON DIOXIDE 25 mEq/L (21-32)
[2024-06-15 23:04] LABS: CALCIUM 8.9 mg/dL (8.7-10.4)
[2024-06-15 23:08] LABS: CREATININE 1.7 mg/dL (0.6-1.3); GLUCOSE 91 mg/dL (70-105); UREA NITROGEN BLOOD 41 mg/dL (9-23)
[2024-06-15 23:09] LABS: TROPONIN I HIGH SENSITIVITY 15 ng/L (3.0-53)
[2024-06-15] MEDS ORDERED: AZITHROMYCIN 500MG/250ML 250 ML IV SCH (23:45)
[2024-06-16] MEDS: AZITHROMYCIN 500MG/250ML 250 ML IV NR (00:02)
[2024-06-16] MEDS ORDERED: DOCUSATE SODIUM 100MG CAPSULE PO PRN (02:30)
[2024-06-16] MEDS ORDERED: IPRATROPIUM/ALBUTEROL 0.5-3(2.5)MG/3ML NEB HHN PRN (02:30)
[2024-06-16] MEDS ORDERED: MAGNESIUM/ALUMINUM HYDROXIDE/SIMETHICONE 30ML UDC PO PRN (02:30)
[2024-06-16] MEDS ORDERED: ONDANSETRON HCL 4MG/2ML INJ IV PRN (02:30)
[2024-06-16] MEDS ORDERED: DEXTROSE 50% WATER 50ML SYRINGE IV PRN (02:30)
[2024-06-16] MEDS ORDERED: CLONIDINE 0.1MG TABLET PO PRN (02:30)
[2024-06-16] MEDS: METHYLPREDNISOLONE SOD SUCC 125MG/2ML (ACT-O-VIAL) IV NR (02:55)
[2024-06-16 04:11] LABS: TRIGLYCERIDE 134 mg/dL (0-150)
[2024-06-16 04:12] LABS: LDL CHOLESTEROL 101 mg/dL (5-100)
[2024-06-16 04:13] LABS: CHOLESTEROL 163 mg/dL (<200); HDL CHOLESTEROL 46 mg/dL (>55); PHOSPHORUS 3.4 mg/dL (2.5-4.9)
[2024-06-16 04:20] LABS: BG BASE EXCESS 0.9 mmol/L (-2.0-3.0); BG CARBOXYHEMOGLOBIN 0.5 % (0.5-1.5); BG DEOXYHEMOGLOBIN 10.5 % (0.0-5.0); BG FRACTION INSPIRED OXYGEN 21; BG HCO3 ACT 24.9 mmol/L (21.0-28.0); BG METHEMOGLOBIN 0.3 % (0.5-1.5); BG OXYGEN SATURATION 89.4 % (94.0-98.0); BG OXYHEMOGLOBIN 88.7 % (94.0-98.0); BG PCO2 37.9 mmHg (35.0-48.0); BG PH 7.436 (7.350-7.450); BG PO2 54.1 mmHg (83.0-108.0); BG SAMPLE SITE RIGHT RADIAL; BG TOTAL HEMOGLOBIN 12.2 g/dL (13.5-17.5); BG VENT MODE ROOM AIR
[2024-06-16] MEDS: TRAMADOL 50MG TABLET PO NR ×2 (05:19→13:15)
[2024-06-16] MEDS: ACETYLCYSTEINE 200MG/ML 20% VIAL 4ML INH SCH (06:00)
[2024-06-16] MEDS: IPRATROPIUM/ALBUTEROL 0.5-3(2.5)MG/3ML NEB HHN SCH (06:00)
[2024-06-16 06:06] LABS: CLARITY URINE CLEAR (CLEAR); COLOR URINE YELLOW (YELLOW); GLUCOSE URINE NEGATIVE (NEGATIVE); KETONES URINE NEGATIVE (NEGATIVE); LEUKOCYTE ESTERASE URINE NEGATIVE (NEGATIVE); NITRITE URINE NEGATIVE (NEGATIVE); OCCULT BLOOD URINE NEGATIVE (NEGATIVE); PROTEIN URINE NEGATIVE (NEGATIVE); UROBILINOGEN URINE 0.2 E.U./dL (0.2-1.0)
[2024-06-16] MEDS: PIPERACILLIN/TAZO 3.375G/50ML 50 ML IV SCH (06:20)
[2024-06-16] MEDS: MAGNESIUM 2 G PREMIX 50 ML IV NR (06:39)
[2024-06-16 08:00] VITALS: PULSE 66; RESP 16; O2SAT 97
[2024-06-16] MEDS: ASPIRIN 81MG EC TABLET PO SCH (09:00)
[2024-06-16 09:56] LABS: BG BASE EXCESS -0.8 mmol/L (-2.0-3.0); BG CARBOXYHEMOGLOBIN 0.8 % (0.5-1.5); BG DEOXYHEMOGLOBIN 12.4 % (0.0-5.0); BG FRACTION INSPIRED OXYGEN 21; BG HCO3 ACT 23.8 mmol/L (21.0-28.0); BG METHEMOGLOBIN 0.3 % (0.5-1.5); BG OXYGEN SATURATION 87.5 % (94.0-98.0); BG OXYHEMOGLOBIN 86.5 % (94.0-98.0); BG PCO2 39.1 mmHg (35.0-48.0); BG PH 7.402 (7.350-7.450); BG PO2 55.3 mmHg (83.0-108.0); BG SAMPLE SITE LEFT BRACHIAL; BG TOTAL HEMOGLOBIN 12.6 g/dL (13.5-17.5); BG VENT MODE ROOM AIR
[2024-06-16 12:20] LABS: TROPONIN I HIGH SENSITIVITY 9 ng/L (3.0-53)
[2024-06-16 12:23] LABS: CREATINE KINASE 35 IU/L (46-171)
[2024-06-16 13:22] LABS: LACTIC ACID 3.6 mmol/L (0.4-2.0)
[2024-06-16 13:32] VITALS: PULSE 77; RESP 20; O2SAT 98
[2024-06-16 16:22] LABS: TROPONIN I HIGH SENSITIVITY 8 ng/L (3.0-53)
[2024-06-16 16:23] LABS: CREATINE KINASE 40 IU/L (46-171)
[2024-06-16 20:33] VITALS: BP 136/121; PULSE 75; RESP 15; TEMP 37.00296; O2SAT 96
[2024-06-16 20:40] VITALS: BP 136/121; PULSE 75; RESP 15; TEMP 37.0296
[2024-06-16] MEDS ORDERED: AZITHROMYCIN 500MG/250ML 250 ML IV SCH (21:00)
[2024-06-16] MEDS: METHYLPREDNISOLONE SOD SUCC 125MG/2ML (ACT-O-VIAL) IV SCH (21:46)
[2024-06-16 21:48] VITALS: BP 144/111; PULSE 74; RESP 14; O2SAT 98
[2024-06-16] MEDS: ATORVASTATIN CALCIUM 20MG TABLET PO SCH (21:48)
[2024-06-16] MEDS: KETOROLAC 30MG/ML VIAL IV NR (21:52)
[2024-06-16] MEDS: AZITHROMYCIN 500 MG in SODIUM CHLORIDE 0.9% 250 ML IV SCH (21:53)
[2024-06-16] MEDS: BLOOD SUGAR DIAGNOSTIC STRIP TEST SCH (22:03)
[2024-06-16] MEDS: INSULIN LISPRO 100 UNITS/ML SUBCUT SCH (22:12)
[2024-06-16 23:52] VITALS: BP 147/80; PULSE 69; RESP 22; TEMP 36.44736; O2SAT 97
[2024-06-17] VITALS (9 sets, daily range): BP systolic 109–120; BP diastolic 51–64; PULSE 65–74; RESP 13–22; TEMP 36.28068–37.00296; O2SAT 95–100
[2024-06-17] MEDS: PANTOPRAZOLE 40MG DR TABLET PO SCH (07:05)
[2024-06-17 07:30] LABS: POTASSIUM 5.2 mEq/L (3.5-5.1)
[2024-06-17 07:36] LABS: CREATININE 1.8 mg/dL (0.6-1.3)
[2024-06-17 07:40] LABS: T4 FREE 1.62 ng/dL (0.89-1.76); THYROID STIMULATING HORMONE 0.13 uIU/mL (0.55-4.78)
[2024-06-17 07:43] LABS: HEMATOCRIT. 37.8 % (42.0-52.0); HEMOGLOBIN. 11.7 g/dL (14.0-18.0); MEAN CORPUSCULAR HEMOGLOBIN 24.5 pg (28.0-32.0); MEAN CORPUSCULAR HGB CONC 30.9 g/dL (31.0-37.0); MEAN CORPUSCULAR VOLUME 79.4 fL (80.0-94.0); MEAN PLATELET VOLUME 8.8 fl (7.4-10.4); PLATELET 174 x1000/uL (130-400); RED BLOOD CELL COUNT 4.77 mill/uL (4.7-6.1); RED CELL DISTRIBUTION WIDTH 17.7 % (11.6-14.6); WHITE BLOOD COUNT 13.3 x1000/uL (4.5-11.0)
[2024-06-17 08:12] LABS: DIFFERENTIAL COMMENT 1
[2024-06-17] MEDS: INSULIN LISPRO 100 UNITS/ML SUBCUT SCH (12:50)
[2024-06-17 15:51] LABS: POTASSIUM 4.5 mEq/L (3.5-5.1)
[2024-06-17 16:04] LABS: HYPOCHROMASIA 1+; MICROCYTOSIS 1+; PLATELET ESTIMATE NORMAL
[2024-06-17] MEDS: BUDESONIDE 0.5MG/2ML NEB HHN SCH (20:53)
[2024-06-17 21:31] LABS: *AMPHETAMINES SCREEN URINE NEGATIVE (NEGATIVE)
[2024-06-17 21:32] LABS: *BARBITURATES SCREEN URINE NEGATIVE (NEGATIVE); *BENZODIAZEPINES SCREEN URINE NEGATIVE (NEGATIVE); *COCAINE SCREEN URINE NEGATIVE (NEGATIVE); CANNABINOID URINE SCREEN NEGATIVE (NEGATIVE); ECSTASY MDMA SCREEN URINE NEGATIVE (NEGATIVE); METHADONE URINE SCREEN NEGATIVE (NEGATIVE); OPIATES URINE SCREEN NEGATIVE (NEGATIVE); PHENCYCLIDINE URINE SCREEN NEGATIVE (NEGATIVE)
[2024-06-17] MEDS: PREDNISONE 20MG TABLET PO SCH (22:10)
[2024-06-17] MEDS: INSULIN GLARGINE 100 UNITS/ML SUBCUT SCH (22:13)
[2024-06-17] MEDS: ACETAMINOPHEN 325MG TABLET PO PRN (22:24)
[2024-06-18] VITALS (10 sets, daily range): BP systolic 113–129; BP diastolic 66–90; PULSE 66–79; RESP 12–19; TEMP 36.114–37.00296; O2SAT 97–99
[2024-06-18] MEDS: TRAMADOL 50MG TABLET PO PRN (01:45)
[2024-06-18 07:47] LABS: POTASSIUM 5.1 mEq/L (3.5-5.1)
[2024-06-18 07:48] LABS: CALCIUM 8.5 mg/dL (8.7-10.4)
[2024-06-18 07:53] LABS: CREATININE 1.5 mg/dL (0.6-1.3)
[2024-06-18 07:55] LABS: LACTIC ACID 2.3 mmol/L (0.4-2.0)
[2024-06-18 08:15] LABS: HEMATOCRIT 33.1 % (42.0-52.0); HEMOGLOBIN 10.3 g/dL (14.0-18.0); MEAN CORPUSCULAR HEMOGLOBIN 24.7 pg (28.0-32.0); MEAN CORPUSCULAR VOLUME 79.6 fL (80.0-94.0); PLATELET 174 x1000/uL (130-400); RED BLOOD CELL COUNT 4.15 mill/uL (4.7-6.1); RED CELL DISTRIBUTION WIDTH 17.6 % (11.6-14.6); WHITE BLOOD COUNT 13.4 x1000/uL (4.5-11.0)
[2024-06-18] MEDS ORDERED: NALOXONE HCL 0.4MG/ML VIAL IV PRN (15:45)
[2024-06-18] MEDS: METHYLPREDNISOLONE SOD SUCC 40MG/ML (ACT-O-VIAL) IV SCH (21:51)
[2024-06-18] MEDS: MELATONIN 3MG TABLET PO PRN (23:05)
[2024-06-19] VITALS (10 sets, daily range): BP systolic 108–137; BP diastolic 58–76; PULSE 60–82; RESP 12–27; TEMP 36.28068–36.78072; O2SAT 96–100
[2024-06-19] MEDS: GUAIFENESIN 200MG/10ML SUGAR FREE UDC PO PRN (00:22)
[2024-06-19 07:10] LABS: CALCIUM 8.6 mg/dL (8.7-10.4); INR 0.9; PROTHROMBIN TIME 10.5 sec (9.6-11.0)
[2024-06-19 07:14] LABS: CREATININE 1.5 mg/dL (0.6-1.3)
[2024-06-19 07:21] LABS: HEMATOCRIT 32.9 % (42.0-52.0); HEMOGLOBIN 10.1 g/dL (14.0-18.0); MEAN CORPUSCULAR HEMOGLOBIN 24.8 pg (28.0-32.0); MEAN CORPUSCULAR HGB CONC 30.8 g/dL (31.0-37.0); MEAN CORPUSCULAR VOLUME 80.5 fL (80.0-94.0); PLATELET 163 x1000/uL (130-400); RED BLOOD CELL COUNT 4.08 mill/uL (4.7-6.1); RED CELL DISTRIBUTION WIDTH 18.1 % (11.6-14.6); WHITE BLOOD COUNT 12.3 x1000/uL (4.5-11.0)
[2024-06-19] MEDS: INSULIN LISPRO 100 UNITS/ML SUBCUT SCH (16:50)
[2024-06-19] MEDS: INSULIN GLARGINE 100 UNITS/ML SUBCUT SCH (21:30)
[2024-06-20] VITALS (10 sets, daily range): BP systolic 123–148; BP diastolic 55–76; PULSE 72–84; RESP 16–24; TEMP 36.55848–37.16964; O2SAT 97–100
[2024-06-20 08:35] LABS: CALCIUM 8.8 mg/dL (8.7-10.4)
[2024-06-20 08:38] LABS: HEMATOCRIT 32.7 % (42.0-52.0); HEMOGLOBIN 10.3 g/dL (14.0-18.0); MEAN CORPUSCULAR HEMOGLOBIN 25.1 pg (28.0-32.0); MEAN CORPUSCULAR HGB CONC 31.4 g/dL (31.0-37.0); MEAN CORPUSCULAR VOLUME 79.9 fL (80.0-94.0); PLATELET 188 x1000/uL (130-400); RED BLOOD CELL COUNT 4.09 mill/uL (4.7-6.1)
[2024-06-20 08:40] LABS: CREATININE 1.6 mg/dL (0.6-1.3)
[2024-06-20] MEDS: PREDNISONE 20MG TABLET PO SCH (09:09)
[2024-06-20] MEDS ORDERED: AZITHROMYCIN 500 MG in SODIUM CHLORIDE 0.9% 250 ML IV SCH (21:00)
[2024-06-20] MEDS: AZITHROMYCIN 500MG/250ML 250 ML IV SCH (21:33)
[2024-06-21] VITALS (7 sets, daily range): BP systolic 127–145; BP diastolic 58–86; PULSE 63–86; RESP 14–23; TEMP 36.114–36.61404; O2SAT 98–100
[2024-06-22] VITALS: PULSE 74; RESP 18; TEMP 36.72516; O2SAT 99
[2024-06-22 04:00] VITALS: BP 133/70
[2024-06-22 08:00] VITALS: PULSE 70; RESP 18; TEMP 36.3918; O2SAT 98
[2024-06-22 12:00] VITALS: BP 127/68; PULSE 71; RESP 18; TEMP 36.6696; O2SAT 99
[2024-06-22 16:00] VITALS: BP 118/70; PULSE 70; RESP 18; TEMP 36.78072; O2SAT 100
[2024-06-22 20:00] VITALS: BP 129/75; PULSE 71; RESP 16; TEMP 36.6696; O2SAT 96
[2024-06-23] VITALS (13 sets, daily range): BP systolic 133–147; BP diastolic 68–89; PULSE 61–74; RESP 12–22; TEMP 36.50292–36.72516; O2SAT 94–100
[2024-06-23 07:24] LABS: CALCIUM 8.9 mg/dL (8.7-10.4); CARBON DIOXIDE 29 mEq/L (21-32); CHLORIDE 105 mEq/L (98-107); POTASSIUM 4.5 mEq/L (3.5-5.1); SODIUM 140 mEq/L (136-145)
[2024-06-23 07:30] LABS: CREATININE 1.5 mg/dL (0.6-1.3); GLUCOSE 157 mg/dL (70-105); UREA NITROGEN BLOOD 31 mg/dL (9-23)
[2024-06-23 07:32] LABS: PHOSPHORUS 3.3 mg/dL (2.5-4.9)
[2024-06-23 07:53] LABS: INR 0.9; PARTIAL THROMBOPLASTIN TIME < 21.0 sec (23.4-31.0); PROTHROMBIN TIME 10.6 sec (9.6-11.0)
[2024-06-23 07:59] LABS: HEMATOCRIT. 37.6 % (42.0-52.0); HEMOGLOBIN. 11.6 g/dL (14.0-18.0); MEAN CORPUSCULAR HEMOGLOBIN 24.7 pg (28.0-32.0); MEAN CORPUSCULAR HGB CONC 30.9 g/dL (31.0-37.0); MEAN CORPUSCULAR VOLUME 79.9 fL (80.0-94.0); MEAN PLATELET VOLUME 8.9 fl (7.4-10.4); PLATELET 206 x1000/uL (130-400); RED BLOOD CELL COUNT 4.71 mill/uL (4.7-6.1); RED CELL DISTRIBUTION WIDTH 17.4 % (11.6-14.6); WHITE BLOOD COUNT 14.2 x1000/uL (4.5-11.0)
[2024-06-23 08:30] LABS: DIFFERENTIAL COMMENT 1
[2024-06-23] MEDS ORDERED: P20 PO (08:39)
[2024-06-23] MEDS ORDERED: ASPI-1497 MT (08:39)
[2024-06-23] MEDS ORDERED: INSU100I28 SQ (08:39)
[2024-06-23] MEDS ORDERED: ATOR20TA PO (08:39)
[2024-06-23] MEDS ORDERED: TAMS-11 MT (08:39)
[2024-06-23] MEDS ORDERED: FENTANYL CITRATE/PF 50MCG/ML 2ML VIAL ONE (09:28)
[2024-06-23] MEDS: FENTANYL CITRATE/PF 50MCG/ML 2ML VIAL IV ONE (09:45)
[2024-06-23 13:16] LABS: ANISOCYTOSIS 1+
[2024-06-23 13:17] LABS: PLATELET ESTIMATE NORMAL
== END 2024-06-23 16:05 | disposition home or self-care (01) | DRG 720 ==
LOC: ER 20:04 → 3WST 06-16 20:40
PROVIDERS: ADMIT Hospitalist; ATTEND Hospitalist
DX: A41.9 Sepsis, unspecified organism (principal); J96.22 Acute and chronic respiratory failure with hypercapnia; I13.0 Hypertensive heart and chronic kidney disease with heart failure and stage 1 through stage 4 chronic kidney disease, or unspecified chronic kidney disease; J18.9 Pneumonia, unspecified organism; N17.9 Acute kidney failure, unspecified; J44.0 Chronic obstructive pulmonary disease with (acute) lower respiratory infection; E11.22 Type 2 diabetes mellitus with diabetic chronic kidney disease; I25.110 Atherosclerotic heart disease of native coronary artery with unstable angina pectoris; I50.22 Chronic systolic (congestive) heart failure; J44.1 Chronic obstructive pulmonary disease with (acute) exacerbation; Z20.822 Contact with and (suspected) exposure to COVID-19; F10.10 Alcohol abuse, uncomplicated; K21.9 Gastro-esophageal reflux disease without esophagitis; F19.10 Other psychoactive substance abuse, uncomplicated; E78.5 Hyperlipidemia, unspecified; N18.9 Chronic kidney disease, unspecified; Z79.84 Long term (current) use of oral hypoglycemic drugs; Z79.899 Other long term (current) drug therapy; Z95.1 Presence of aortocoronary bypass graft; Z79.01 Long term (current) use of anticoagulants; I25.2 Old myocardial infarction; Z87.891 Personal history of nicotine dependence; Z91.199 Patient's noncompliance with other medical treatment and regimen due to unspecified reason
CPT/HCPCS: 32408; 36415; 36600; 71045; 71250; 80048; 80061; 80305; 81003; 82375; 82550; 82805; 82962; 83036; 83605; 83735; 83880; 84100; 84132; 84145; 84439; 84443; 84484; 85025; 85027; 87070; 87426; 88305; 93005; 94070; 94640; 96365; 96366; 96367; 96375; 97165; 99152; 99153; 99285; J0456; J1815; J1885; J2543; J2919; J2920; J3010; J3370; J3475; J7040; J7050; J7512; J7608; J7626; G0500

== ENCOUNTER 2024-07-04 19:38 | Inpatient (IN) | payer MEDICARE, MEDICAID ==
[~2024-07-04] VITALS: Ht 160 cm; Wt 76.7 kg
[~2024-07-04 19:38] MED LIST changes: -CLOP75TA15 PO; -GUAI600T26 MT; +INSU100I28 SQ; -P20 MT; +P20 PO; +TAMS-11 MT
[2024-07-04] MEDS: IPRATROPIUM BROMIDE (0.02%) 0.5MG/2.5ML NEB HHN STA (20:23)
[2024-07-04 20:24] VITALS: PULSE 87; RESP 20
[2024-07-04] MEDS: ALBUTEROL (0.083%) 2.5MG/3ML NEB HHN STA (20:24)
[2024-07-04] MEDS: METHYLPREDNISOLONE SOD SUCC 125MG/2ML (ACT-O-VIAL) IV STA (20:41)
[2024-07-04] MEDS: ONDANSETRON HCL 4MG/2ML INJ IV STA (20:48)
[2024-07-04] MEDS: MORPHINE SULFATE 4 MG/ML INJ (FOR IV/IM USE) IV STA (20:48)
[2024-07-04 20:58] LABS: BASOPHILS % 0.4 % (0.0-2.0); DIFFERENTIAL COMMENT 0; EOSINOPHILS % 0.9 % (0.0-5.0); HEMATOCRIT. 35.2 % (42.0-52.0); HEMOGLOBIN. 10.9 g/dL (14.0-18.0); LYMPHOCYTES % 19.1 % (20.0-50.0); MEAN CORPUSCULAR HEMOGLOBIN 24.7 pg (28.0-32.0); MEAN CORPUSCULAR HGB CONC 30.9 g/dL (31.0-37.0); MEAN CORPUSCULAR VOLUME 80.1 fL (80.0-94.0); MONOCYTES % 7.6 % (2.0-8.0); PLATELET 204 x1000/uL (130-400); RED CELL DISTRIBUTION WIDTH 17.1 % (11.6-14.6); WHITE BLOOD COUNT 8.2 x1000/uL (4.5-11.0)
[2024-07-04 21:09] LABS: CHLORIDE 103 mEq/L (98-107); POTASSIUM 4.3 mEq/L (3.5-5.1); SODIUM 137 mEq/L (136-145)
[2024-07-04 21:11] LABS: CALCIUM 9.1 mg/dL (8.7-10.4); CARBON DIOXIDE 26 mEq/L (21-32)
[2024-07-04 21:13] LABS: PROTHROMBIN TIME 11.4 sec (9.6-11.0)
[2024-07-04 21:16] LABS: CREATININE 1.4 mg/dL (0.6-1.3); GLUCOSE 103 mg/dL (70-105); UREA NITROGEN BLOOD 16 mg/dL (9-23)
[2024-07-04 21:17] LABS: TROPONIN I HIGH SENSITIVITY 15 ng/L (3.0-53)
[2024-07-04] MEDS: CEFTRIAXONE 2GM/50ML 50 ML IV ONE (21:31)
[2024-07-04] MEDS: INSULIN GLARGINE 100 UNITS/ML SUBCUT SCH (22:00)
[2024-07-04] MEDS ORDERED: ONDANSETRON HCL 4MG/2ML INJ IV PRN (22:30)
[2024-07-04] MEDS ORDERED: DIPHENHYDRAMINE 50MG/ML VIAL IV PRN (22:30)
[2024-07-04] MEDS: IPRATROPIUM/ALBUTEROL 0.5-3(2.5)MG/3ML NEB HHN SCH (22:30)
[2024-07-04] MEDS ORDERED: IPRATROPIUM/ALBUTEROL 0.5-3(2.5)MG/3ML NEB HHN PRN (22:30)
[2024-07-04] MEDS ORDERED: MAGNESIUM/ALUMINUM HYDROXIDE/SIMETHICONE 30ML UDC PO PRN (22:30)
[2024-07-04] MEDS ORDERED: CLONIDINE 0.1MG TABLET PO PRN (22:30)
[2024-07-04] MEDS ORDERED: PROMETHAZINE/DEXTROMETHORPHAN 6.25-15MG/5ML PO PRN (22:30)
[2024-07-05] VITALS (8 sets, daily range): BP systolic 113–145; BP diastolic 54–76; PULSE 62–87; RESP 18–20; TEMP 35.78064–36.55848; O2SAT 92–100
[2024-07-05] MEDS: ZOLPIDEM TARTRATE 5MG TABLET PO PRN (00:57)
[2024-07-05] MEDS: TRAMADOL 50MG TABLET PO PRN (00:58)
[2024-07-05] MEDS: FUROSEMIDE 40MG/4ML VIAL IVP SCH (03:46)
[2024-07-05] MEDS: KETOROLAC 15MG/ML VIAL IV PRN (03:59)
[2024-07-05] MEDS: SODIUM CHLORIDE 0.9% 3ML FLUSH IVF SCH (06:25)
[2024-07-05] MEDS: BLOOD SUGAR DIAGNOSTIC STRIP TEST SCH (06:25)
[2024-07-05] MEDS: PANTOPRAZOLE 40MG DR TABLET PO SCH (06:37)
[2024-07-05] MEDS: INSULIN LISPRO 100 UNITS/ML SUBCUT SCH (07:19)
[2024-07-05] MEDS ORDERED: FUROSEMIDE 40MG/4ML VIAL IVP SCH (09:00)
[2024-07-05] MEDS: GUAIFENESIN 600MG ER TABLET PO SCH (09:16)
[2024-07-05] MEDS: DOCUSATE SODIUM 100MG CAPSULE PO SCH (09:16)
[2024-07-05] MEDS: LOSARTAN 25 MG TABLET PO SCH (09:16)
[2024-07-05] MEDS: CARVEDILOL 6.25 MG TABLET PO SCH (09:17)
[2024-07-05 09:18] LABS: TROPONIN I HIGH SENSITIVITY 9 ng/L (3.0-53)
[2024-07-05] MEDS: ENOXAPARIN 40MG/0.4ML SYR SUBCUT SCH (09:18)
[2024-07-06] VITALS (8 sets, daily range): BP systolic 103–120; BP diastolic 61–66; PULSE 51–98; RESP 18–22; TEMP 36.114–36.50292; O2SAT 94–97
[2024-07-06 02:58] LABS: *AMPHETAMINES SCREEN URINE NEGATIVE (NEGATIVE); *BARBITURATES SCREEN URINE NEGATIVE (NEGATIVE); *BENZODIAZEPINES SCREEN URINE NEGATIVE (NEGATIVE); *COCAINE SCREEN URINE NEGATIVE (NEGATIVE); CANNABINOID URINE SCREEN NEGATIVE (NEGATIVE); ECSTASY MDMA SCREEN URINE NEGATIVE (NEGATIVE); METHADONE URINE SCREEN NEGATIVE (NEGATIVE); OPIATES URINE SCREEN NEGATIVE (NEGATIVE); PHENCYCLIDINE URINE SCREEN NEGATIVE (NEGATIVE)
[2024-07-06] MEDS: BUDESONIDE 0.5MG/2ML NEB HHN SCH (08:04)
[2024-07-06] MEDS: DEXTROSE 50% WATER 50ML SYRINGE IV PRN (13:01)
[2024-07-06] MEDS: FUROSEMIDE 40MG/4ML VIAL IVP NR (18:44)
[2024-07-06] MEDS: TERBUTALINE SULFATE 1MG/ML VIAL SUBCUT NR (20:00)
[2024-07-06] MEDS: INSULIN GLARGINE 100 UNITS/ML SUBCUT SCH (23:02)
[2024-07-06 23:37] LABS: BASOPHILS % 0.1 % (0.0-2.0); DIFFERENTIAL COMMENT 0; EOSINOPHILS % 0.4 % (0.0-5.0); HEMATOCRIT. 34.3 % (42.0-52.0); HEMOGLOBIN. 10.7 g/dL (14.0-18.0); LYMPHOCYTES % 11.8 % (20.0-50.0); MEAN CORPUSCULAR HEMOGLOBIN 24.5 pg (28.0-32.0); MEAN CORPUSCULAR HGB CONC 31.2 g/dL (31.0-37.0); MEAN CORPUSCULAR VOLUME 78.3 fL (80.0-94.0); MONOCYTES % 9.5 % (2.0-8.0); NEUTROPHILS % 78.2 % (40.0-76.0); PLATELET 314 x1000/uL (130-400); RED BLOOD CELL COUNT 4.38 mill/uL (4.7-6.1); RED CELL DISTRIBUTION WIDTH 16.6 % (11.6-14.6); WHITE BLOOD COUNT 9.5 x1000/uL (4.5-11.0)
[2024-07-06 23:39] LABS: POTASSIUM 3.8 mEq/L (3.5-5.1)
[2024-07-06 23:40] LABS: CALCIUM 8.8 mg/dL (8.7-10.4)
[2024-07-06 23:45] LABS: CREATININE 1.8 mg/dL (0.6-1.3)
[2024-07-06 23:47] LABS: LACTIC ACID 3.2 mmol/L (0.4-2.0)
[2024-07-07] VITALS (16 sets, daily range): BP systolic 102–132; BP diastolic 55–84; PULSE 69–101; RESP 18–33; TEMP 36.28068–37.28076; O2SAT 91–100
[2024-07-07 02:55] LABS: BG BASE EXCESS 6.2 mmol/L (-2.0-3.0); BG CARBOXYHEMOGLOBIN 0.8 % (0.5-1.5); BG FRACTION INSPIRED OXYGEN 100; BG METHEMOGLOBIN 0.3 % (0.5-1.5); BG OXYGEN SATURATION 36.3 % (94.0-98.0); BG OXYHEMOGLOBIN 35.9 % (94.0-98.0); BG PCO2 53.9 mmHg (35.0-48.0); BG PH 7.391 (7.350-7.450); BG TOTAL HEMOGLOBIN 8.1 g/dL (13.5-17.5); BG VENT MODE MASK - NRB
[2024-07-07 07:07] LABS: BG BASE EXCESS 2.1 mmol/L (-2.0-3.0); BG CARBOXYHEMOGLOBIN 0.4 % (0.5-1.5); BG DEOXYHEMOGLOBIN 2.1 % (0.0-5.0); BG FRACTION INSPIRED OXYGEN 100; BG HCO3 ACT 27.7 mmol/L (21.0-28.0); BG METHEMOGLOBIN 0.3 % (0.5-1.5); BG OXYGEN SATURATION 97.9 % (94.0-98.0); BG OXYHEMOGLOBIN 97.2 % (94.0-98.0); BG PCO2 47.7 mmHg (35.0-48.0); BG PH 7.382 (7.350-7.450); BG PO2 113.1 mmHg (83.0-108.0); BG TOTAL HEMOGLOBIN 11.7 g/dL (13.5-17.5); BG VENT MODE MASK - NRB
[2024-07-07] MEDS ORDERED: NALOXONE HCL 0.4MG/ML VIAL IV PRN (09:15)
[2024-07-07] MEDS: FAMOTIDINE 20MG TABLET PO SCH (09:27)
[2024-07-07] MEDS: MEGESTROL ACETATE 400 MG/10 ML UDC PO SCH (09:27)
[2024-07-08] VITALS (50 sets, daily range): BP systolic 55–205; BP diastolic 45–189; PULSE 73–130; RESP 18–32; TEMP 36.3918–37.11408; O2SAT 0–100
[2024-07-08 09:36] LABS: BG BASE EXCESS 5.8 mmol/L (-2.0-3.0); BG CARBOXYHEMOGLOBIN 0.6 % (0.5-1.5); BG FRACTION INSPIRED OXYGEN 80; BG HCO3 ACT 29.9 mmol/L (21.0-28.0); BG METHEMOGLOBIN 0.3 % (0.5-1.5); BG OXYGEN SATURATION 85.9 % (94.0-98.0); BG OXYHEMOGLOBIN 85.1 % (94.0-98.0); BG PCO2 41.7 mmHg (35.0-48.0); BG PH 7.474 (7.350-7.450); BG PO2 48.9 mmHg (83.0-108.0); BG TOTAL HEMOGLOBIN 11.3 g/dL (13.5-17.5); BG VENT MODE HIGH FLOW
[2024-07-08] MEDS: HYDRALAZINE 20MG/ML VIAL IV PRN (12:50)
[2024-07-08] MEDS ORDERED: NICARDIPINE 40MG/200ML PREMIX 200 ML IV PRN (13:00)
[2024-07-08] MEDS ORDERED: PIPERACILLIN/TAZO 3.375G/50ML 50 ML IV SCH (13:15)
[2024-07-08] MEDS: PROPOFOL 10MG/ML 100ML 100 ML IV PRN (14:00)
[2024-07-08] MEDS: PIPERACILLIN/TAZO 3.375G/100ML IV SCH (14:21)
[2024-07-08] MEDS: METHYLPREDNISOLONE SOD SUCC 125MG/2ML (ACT-O-VIAL) IV NR (14:22)
[2024-07-08] MEDS: PHENYLEPHRINE 200 MG in DEXT 5% WATER 480 ML IV PRN (14:53)
[2024-07-08 15:28] LABS: BG BASE EXCESS 3.1 mmol/L (-2.0-3.0); BG CARBOXYHEMOGLOBIN 0.1 % (0.5-1.5); BG DEOXYHEMOGLOBIN 0.6 % (0.0-5.0); BG FRACTION INSPIRED OXYGEN 100; BG HCO3 ACT 26.9 mmol/L (21.0-28.0); BG METHEMOGLOBIN 0.3 % (0.5-1.5); BG OXYGEN SATURATION 99.4 % (94.0-98.0); BG PCO2 38.1 mmHg (35.0-48.0); BG PH 7.467 (7.350-7.450); BG PO2 219.2 mmHg (83.0-108.0); BG SAMPLE SITE LEFT RADIAL; BG TOTAL HEMOGLOBIN 11.6 g/dL (13.5-17.5); BG VENT MODE VENT - AC
[2024-07-08 15:51] LABS: BASOPHILS % 0.3 % (0.0-2.0); DIFFERENTIAL COMMENT 0; EOSINOPHILS % 0.3 % (0.0-5.0); HEMATOCRIT. 34.2 % (42.0-52.0); HEMOGLOBIN. 10.8 g/dL (14.0-18.0); MEAN CORPUSCULAR HEMOGLOBIN 24.8 pg (28.0-32.0); MEAN CORPUSCULAR HGB CONC 31.7 g/dL (31.0-37.0); MEAN CORPUSCULAR VOLUME 78.4 fL (80.0-94.0); MEAN PLATELET VOLUME 8.2 fl (7.4-10.4); NEUTROPHILS % 78.4 % (40.0-76.0); PLATELET 348 x1000/uL (130-400); RED BLOOD CELL COUNT 4.37 mill/uL (4.7-6.1); RED CELL DISTRIBUTION WIDTH 17.1 % (11.6-14.6); WHITE BLOOD COUNT 9.9 x1000/uL (4.5-11.0)
[2024-07-08 16:07] LABS: CHLORIDE 97 mEq/L (98-107); POTASSIUM 3.9 mEq/L (3.5-5.1); SODIUM 135 mEq/L (136-145)
[2024-07-08 16:08] LABS: CALCIUM 9.1 mg/dL (8.7-10.4); CARBON DIOXIDE 27 mEq/L (21-32)
[2024-07-08 16:13] LABS: GLUCOSE 177 mg/dL (70-105); TRIGLYCERIDE 115 mg/dL (0-150); UREA NITROGEN BLOOD 38 mg/dL (9-23)
[2024-07-08 16:14] LABS: ALANINE AMINOTRANSFERASE 9 IU/L (10-49); LDL CHOLESTEROL 112 mg/dL (5-100); PROTEIN TOTAL 6.8 g/dL (6.0-8.3)
[2024-07-08 16:15] LABS: ALBUMIN 3.4 g/dL (3.2-4.8); ASPARTATE AMINOTRANSFERASE 15 IU/L (<34); BILIRUBIN TOTAL 0.3 mg/dL (0.1-1.0); CHOLESTEROL 165 mg/dL (<200); HDL CHOLESTEROL 34 mg/dL (>55)
[2024-07-08 16:16] LABS: LACTIC ACID 2.4 mmol/L (0.4-2.0)
[2024-07-08] MEDS: METHYLPREDNISOLONE SOD SUCC 40MG/ML (ACT-O-VIAL) IV SCH (18:01)
[2024-07-08] MEDS ORDERED: IOHEXOL-350 100 ML BOTTLE ONE (23:45)
[2024-07-09] VITALS (105 sets, daily range): BP systolic 82–155; BP diastolic 47–88; PULSE 59–89; RESP 13–29; TEMP 36.61404–36.89184; O2SAT 92–100
[2024-07-09] MEDS: DOCUSATE SODIUM SUGAR FREE 100MG/10ML UDC NG SCH (09:00)
[2024-07-09 09:47] LABS: BG BASE EXCESS 4.4 mmol/L (-2.0-3.0); BG CARBOXYHEMOGLOBIN 0.3 % (0.5-1.5); BG DEOXYHEMOGLOBIN 3.3 % (0.0-5.0); BG FRACTION INSPIRED OXYGEN 70; BG HCO3 ACT 28.6 mmol/L (21.0-28.0); BG METHEMOGLOBIN 0.3 % (0.5-1.5); BG OXYGEN SATURATION 96.7 % (94.0-98.0); BG OXYHEMOGLOBIN 96.1 % (94.0-98.0); BG PCO2 40.9 mmHg (35.0-48.0); BG PH 7.462 (7.350-7.450); BG PO2 88.6 mmHg (83.0-108.0); BG SAMPLE SITE RIGHT RADIAL; BG TOTAL HEMOGLOBIN 11.4 g/dL (13.5-17.5); BG VENT MODE VENT - AC
[2024-07-09] MEDS ORDERED: MEROPENEM 1G/100ML 100 ML IV SCH (14:00)
[2024-07-09] MEDS: MEROPENEM 1GM/50ML DUPLEX 50 ML IV SCH (15:41)
[2024-07-09] MEDS: VANCOMYCIN 1.5GM PMX (XELLIA) 300 ML IV NR (16:30)
[2024-07-09] MEDS: PROPOFOL 10MG/ML 100ML 100 ML IV PRN (18:05)
[2024-07-10] VITALS (107 sets, daily range): BP systolic 93–202; BP diastolic 66–170; PULSE 50–91; RESP 8–34; TEMP 36.78072–37.11408; O2SAT 93–100
[2024-07-10 06:19] LABS: HEMOGLOBIN. 11.4 g/dL (14.0-18.0); MEAN CORPUSCULAR HEMOGLOBIN 24.5 pg (28.0-32.0); MEAN CORPUSCULAR HGB CONC 31.6 g/dL (31.0-37.0); MEAN CORPUSCULAR VOLUME 77.4 fL (80.0-94.0); MEAN PLATELET VOLUME 8.1 fl (7.4-10.4); PLATELET 578 x1000/uL (130-400); RED BLOOD CELL COUNT 4.65 mill/uL (4.7-6.1); RED CELL DISTRIBUTION WIDTH 17.5 % (11.6-14.6); WHITE BLOOD COUNT 15.9 x1000/uL (4.5-11.0)
[2024-07-10 06:25] LABS: DIFFERENTIAL COMMENT 1
[2024-07-10 09:40] LABS: BG BASE EXCESS 3.5 mmol/L (-2.0-3.0); BG CARBOXYHEMOGLOBIN 0.4 % (0.5-1.5); BG DEOXYHEMOGLOBIN 1.1 % (0.0-5.0); BG FRACTION INSPIRED OXYGEN 70; BG HCO3 ACT 26.9 mmol/L (21.0-28.0); BG METHEMOGLOBIN 0.3 % (0.5-1.5); BG OXYGEN SATURATION 98.9 % (94.0-98.0); BG OXYHEMOGLOBIN 98.2 % (94.0-98.0); BG PCO2 36.6 mmHg (35.0-48.0); BG PH 7.484 (7.350-7.450); BG PO2 138.8 mmHg (83.0-108.0); BG SAMPLE SITE LEFT RADIAL; BG TOTAL HEMOGLOBIN 12.2 g/dL (13.5-17.5); BG VENT MODE VENT - AC
[2024-07-10 10:08] LABS: POTASSIUM 3.1 mEq/L (3.5-5.1)
[2024-07-10 10:09] LABS: CALCIUM 9.3 mg/dL (8.7-10.4)
[2024-07-10 10:14] LABS: CREATININE 2.1 mg/dL (0.6-1.3)
[2024-07-10] MEDS: ASPIRIN 81MG TABLET PO NR (11:57)
[2024-07-10] MEDS ORDERED: LIDOCAINE HCL 1% 10 MG/ML 10ML VIAL ONE (12:48)
[2024-07-10] MEDS ORDERED: VANCOMYCIN 750MG PREMIX 150 ML IV SCH (15:00)
[2024-07-10] MEDS: VANCOMYCIN 750MG/150ML (BAXTER) IV SCH (16:35)
[2024-07-10 20:32] LABS: ANISOCYTOSIS 1+; MICROCYTOSIS 2+; PLATELET ESTIMATE INCREASED
[2024-07-10] MEDS: PROPOFOL 10MG/ML 100ML 100 ML IV PRN (20:32)
[2024-07-10] MEDS: ATORVASTATIN CALCIUM 40MG TABLET PO SCH (21:09)
[2024-07-10] MEDS: POTASSIUM CHLORIDE 20MEQ/PACKET PO NR (22:47)
[2024-07-11] VITALS (104 sets, daily range): BP systolic 65–190; BP diastolic 18–117; PULSE 47–105; RESP 11–34; TEMP 36.50292–37.11408; O2SAT 95–100
[2024-07-11] MEDS: KCL 20MEQ/100ML PREMIX 100 ML IV SCH (06:00)
[2024-07-11 06:16] LABS: POTASSIUM 3.8 mEq/L (3.5-5.1)
[2024-07-11 06:17] LABS: CALCIUM 9.7 mg/dL (8.7-10.4)
[2024-07-11 06:22] LABS: CREATININE 2.1 mg/dL (0.6-1.3)
[2024-07-11 09:09] LABS: BG BASE EXCESS 2.9 mmol/L (-2.0-3.0); BG CARBOXYHEMOGLOBIN 0.7 % (0.5-1.5); BG DEOXYHEMOGLOBIN 0.4 % (0.0-5.0); BG FRACTION INSPIRED OXYGEN 60; BG HCO3 ACT 24.4 mmol/L (21.0-28.0); BG METHEMOGLOBIN 0.3 % (0.5-1.5); BG OXYGEN SATURATION 99.6 % (94.0-98.0); BG OXYHEMOGLOBIN 98.6 % (94.0-98.0); BG PCO2 28.8 mmHg (35.0-48.0); BG PH 7.546 (7.350-7.450); BG PO2 211.6 mmHg (83.0-108.0); BG SAMPLE SITE RIGHT RADIAL; BG TOTAL HEMOGLOBIN 13.7 g/dL (13.5-17.5); BG TOTAL RESPIRATORY RATE 28 b/min; BG VENT MODE VENT - AC
[2024-07-11] MEDS: VANCOMYCIN 1.25GM PMX (XELLIA) 250 ML IV SCH (15:17)
[2024-07-11] MEDS: PROPOFOL 10MG/ML 100ML 100 ML IV PRN (19:33)
[2024-07-12] VITALS (107 sets, daily range): BP systolic 38–176; BP diastolic 27–88; PULSE 59–108; RESP 13–28; TEMP 36.55848–38.44752; O2SAT 94–100
[2024-07-12] MEDS: ACETAMINOPHEN 325MG TABLET PO PRN (00:30)
[2024-07-12 06:31] LABS: POTASSIUM 4.1 mEq/L (3.5-5.1)
[2024-07-12 06:32] LABS: CALCIUM 9.5 mg/dL (8.7-10.4)
[2024-07-12 06:36] LABS: CREATININE 2.2 mg/dL (0.6-1.3)
[2024-07-12 08:36] LABS: HEMATOCRIT. 48.6 % (42.0-52.0); MEAN CORPUSCULAR HEMOGLOBIN 24.6 pg (28.0-32.0); MEAN CORPUSCULAR HGB CONC 31.2 g/dL (31.0-37.0); MEAN CORPUSCULAR VOLUME 78.9 fL (80.0-94.0); MEAN PLATELET VOLUME 8.5 fl (7.4-10.4); PLATELET 605 x1000/uL (130-400); RED BLOOD CELL COUNT 6.16 mill/uL (4.7-6.1); RED CELL DISTRIBUTION WIDTH 17.9 % (11.6-14.6); WHITE BLOOD COUNT 14.4 x1000/uL (4.5-11.0)
[2024-07-12] MEDS: ASPIRIN 81MG TABLET NG SCH (08:58)
[2024-07-12 09:49] LABS: DIFFERENTIAL COMMENT 1
[2024-07-12 09:50] LABS: HEMOGLOBIN. 15.1 g/dL (14.0-18.0)
[2024-07-12 10:00] LABS: BG CARBOXYHEMOGLOBIN 0.8 % (0.5-1.5); BG DEOXYHEMOGLOBIN 1.3 % (0.0-5.0); BG FRACTION INSPIRED OXYGEN 40; BG HCO3 ACT 27.6 mmol/L (21.0-28.0); BG METHEMOGLOBIN 0.3 % (0.5-1.5); BG OXYGEN SATURATION 98.7 % (94.0-98.0); BG OXYHEMOGLOBIN 97.6 % (94.0-98.0); BG PCO2 30.9 mmHg (35.0-48.0); BG PH 7.569 (7.350-7.450); BG PO2 124.8 mmHg (83.0-108.0); BG SAMPLE SITE RIGHT BRACHIAL; BG TOTAL HEMOGLOBIN 13.3 g/dL (13.5-17.5); BG VENT MODE VENT - AC
[2024-07-12] MEDS: METHYLPREDNISOLONE SOD SUCC 40MG/ML (ACT-O-VIAL) IV SCH (14:08)
[2024-07-12 14:26] LABS: PLATELET ESTIMATE SLIGHTLY INCREASED
[2024-07-12] MEDS: PROPOFOL 10MG/ML 100ML 100 ML IV PRN (21:37)
[2024-07-13] VITALS (93 sets, daily range): BP systolic 105–158; BP diastolic 65–124; PULSE 72–97; RESP 15–32; TEMP 36.6696–37.44744; O2SAT 99–100
[2024-07-13 06:00] LABS: POTASSIUM 3.8 mEq/L (3.5-5.1)
[2024-07-13 06:01] LABS: CALCIUM 9.1 mg/dL (8.7-10.4)
[2024-07-13 06:06] LABS: CREATININE 2.4 mg/dL (0.6-1.3)
[2024-07-13] MEDS: FUROSEMIDE 40MG/4ML VIAL IVP SCH (09:28)
[2024-07-14] VITALS (87 sets, daily range): BP systolic 90–161; BP diastolic 63–100; PULSE 71–118; RESP 13–35; TEMP 36.6696–37.83636; O2SAT 78–100
[2024-07-14 04:59] LABS: HEMATOCRIT. 44.5 % (42.0-52.0); HEMOGLOBIN. 13.9 g/dL (14.0-18.0); MEAN CORPUSCULAR HGB CONC 31.2 g/dL (31.0-37.0); MEAN CORPUSCULAR VOLUME 80.2 fL (80.0-94.0); MEAN PLATELET VOLUME 8.5 fl (7.4-10.4); PLATELET 477 x1000/uL (130-400); RED BLOOD CELL COUNT 5.55 mill/uL (4.7-6.1); RED CELL DISTRIBUTION WIDTH 18.3 % (11.6-14.6); WHITE BLOOD COUNT 25.7 x1000/uL (4.5-11.0)
[2024-07-14 05:06] LABS: POTASSIUM 4.3 mEq/L (3.5-5.1)
[2024-07-14 05:07] LABS: CALCIUM 9.1 mg/dL (8.7-10.4)
[2024-07-14 05:12] LABS: CREATININE 2.3 mg/dL (0.6-1.3)
[2024-07-14 05:51] LABS: DIFFERENTIAL COMMENT 1
[2024-07-14 09:35] LABS: BG BASE EXCESS 7.9 mmol/L (-2.0-3.0); BG CARBOXYHEMOGLOBIN 0.9 % (0.5-1.5); BG DEOXYHEMOGLOBIN 0.8 % (0.0-5.0); BG FRACTION INSPIRED OXYGEN 60; BG METHEMOGLOBIN 0.3 % (0.5-1.5); BG OXYGEN SATURATION 99.2 % (94.0-98.0); BG PCO2 42.3 mmHg (35.0-48.0); BG PH 7.496 (7.350-7.450); BG PO2 160.8 mmHg (83.0-108.0); BG SAMPLE SITE RIGHT RADIAL; BG TOTAL HEMOGLOBIN 14.2 g/dL (13.5-17.5); BG VENT MODE VENT - AC
[2024-07-14 09:46] LABS: ANISOCYTOSIS 1+; PLATELET ESTIMATE SLIGHTLY INCREASED
[2024-07-14] MEDS: CLOPIDOGREL 75MG TABLET PO SCH (12:21)
[2024-07-14] MEDS: PROPOFOL 10MG/ML 100ML 100 ML IV PRN (12:21)
[2024-07-14] MEDS: VANCOMYCIN 750MG PMX (XELLIA) 150 ML IV SCH (15:02)
[2024-07-15] VITALS (97 sets, daily range): BP systolic 86–128; BP diastolic 55–108; PULSE 6–127; RESP 7–35; TEMP 36.72516–37.503; O2SAT 93–100
[2024-07-15] MEDS: PROPOFOL 10MG/ML 100ML 100 ML IV PRN (01:51)
[2024-07-15] MEDS: PHENYLEPHRINE 200 MG in DEXT 5% WATER 480 ML IV PRN (05:09)
[2024-07-15] MEDS: METHYLPREDNISOLONE SOD SUCC 40MG/ML (ACT-O-VIAL) IV SCH (09:57)
[2024-07-15] MEDS: ACETAMINOPHEN 325MG TABLET PO PRN (09:57)
[2024-07-15 10:27] LABS: BG BASE EXCESS 6.5 mmol/L (-2.0-3.0); BG DEOXYHEMOGLOBIN 0.9 % (0.0-5.0); BG FRACTION INSPIRED OXYGEN 50; BG HCO3 ACT 29.5 mmol/L (21.0-28.0); BG METHEMOGLOBIN 0.3 % (0.5-1.5); BG OXYGEN SATURATION 99.1 % (94.0-98.0); BG OXYHEMOGLOBIN 97.8 % (94.0-98.0); BG PO2 146.4 mmHg (83.0-108.0); BG SAMPLE SITE LEFT RADIAL; BG TOTAL HEMOGLOBIN 13.9 g/dL (13.5-17.5); BG TOTAL RESPIRATORY RATE 27 b/min; BG VENT MODE VENT - AC
[2024-07-15 10:29] LABS: CHLORIDE 98 mEq/L (98-107); POTASSIUM 3.7 mEq/L (3.5-5.1); SODIUM 141 mEq/L (136-145)
[2024-07-15 10:30] LABS: CARBON DIOXIDE 34 mEq/L (21-32)
[2024-07-15 10:31] LABS: CALCIUM 8.6 mg/dL (8.7-10.4)
[2024-07-15 10:32] LABS: HEMATOCRIT. 41.3 % (42.0-52.0); HEMOGLOBIN. 12.9 g/dL (14.0-18.0); MEAN CORPUSCULAR HEMOGLOBIN 24.5 pg (28.0-32.0); MEAN CORPUSCULAR HGB CONC 31.1 g/dL (31.0-37.0); MEAN CORPUSCULAR VOLUME 78.6 fL (80.0-94.0); MEAN PLATELET VOLUME 8.7 fl (7.4-10.4); PLATELET 350 x1000/uL (130-400); RED BLOOD CELL COUNT 5.26 mill/uL (4.7-6.1); WHITE BLOOD COUNT 30.5 x1000/uL (4.5-11.0)
[2024-07-15 10:35] LABS: CREATININE 2.2 mg/dL (0.6-1.3); GLUCOSE 251 mg/dL (70-105)
[2024-07-15 10:36] LABS: UREA NITROGEN BLOOD 82 mg/dL (9-23)
[2024-07-15 10:38] LABS: PHOSPHORUS 4.2 mg/dL (2.5-4.9)
[2024-07-15 10:44] LABS: DIFFERENTIAL COMMENT 1
[2024-07-15 16:28] LABS: ANISOCYTOSIS 2+; HYPOCHROMASIA 1+; MICROCYTOSIS 1+; PLATELET ESTIMATE NORMAL
[2024-07-16] VITALS (55 sets, daily range): BP systolic 87–156; BP diastolic 61–104; PULSE 104–134; RESP 13–33; TEMP 35.89176–37.16964; O2SAT 0–100
[2024-07-16] MEDS: PREDNISONE 10MG TABLET PO SCH (11:14)
[2024-07-16] MEDS: PIPERACILLIN/TAZO 3.375G/100ML 100 ML IV SCH (11:18)
[2024-07-17] VITALS (34 sets, daily range): BP systolic 105–159; BP diastolic 58–104; PULSE 102–135; RESP 10–39; TEMP 36.16956–36.9474; O2SAT 90–100
[2024-07-17 05:44] LABS: HEMATOCRIT. 41.7 % (42.0-52.0); HEMOGLOBIN. 13.1 g/dL (14.0-18.0); MEAN CORPUSCULAR HEMOGLOBIN 24.6 pg (28.0-32.0); MEAN CORPUSCULAR HGB CONC 31.4 g/dL (31.0-37.0); MEAN CORPUSCULAR VOLUME 78.5 fL (80.0-94.0); MEAN PLATELET VOLUME 9.4 fl (7.4-10.4); PLATELET 289 x1000/uL (130-400); RED BLOOD CELL COUNT 5.32 mill/uL (4.7-6.1); RED CELL DISTRIBUTION WIDTH 17.6 % (11.6-14.6)
[2024-07-17 05:54] LABS: POTASSIUM 3.6 mEq/L (3.5-5.1)
[2024-07-17 05:56] LABS: CALCIUM 8.3 mg/dL (8.7-10.4)
[2024-07-17 06:00] LABS: CREATININE 2.6 mg/dL (0.6-1.3)
[2024-07-17 06:02] LABS: DIFFERENTIAL COMMENT 1
[2024-07-17] MEDS: PIPERACILLIN/TAZO 3.375G/50ML IV SCH (09:11)
[2024-07-17] MEDS: AMIODARONE 200MG TABLET PO SCH (09:11)
[2024-07-17] MEDS: KCL 20MEQ/100ML PREMIX 100 ML IV NR (11:00)
[2024-07-17 18:24] LABS: HYPOCHROMASIA 1+; MICROCYTOSIS 1+; PLATELET ESTIMATE NORMAL
[2024-07-17] MEDS: MORPHINE SULFATE 250 MG in DEXT 5% WATER 225 ML IV PRN (19:16)
[2024-07-18] VITALS (13 sets, daily range): BP systolic 72–136; BP diastolic 37–123; PULSE 60–111; RESP 4–27; TEMP 23.8908–36.78072; O2SAT 0–98
== END 2024-07-18 21:50 | DRG 207 ==
LOC: ER 19:38 → 8WST 22:09 → 5EST 07-07 08:59 → MICUSO 07-08 13:00 → 6EST 07-18 03:22
PROVIDERS: ADMIT Internal Medicine; ATTEND Internal Medicine
PROC: 5A09357 Assistance with Respiratory Ventilation, Less than 24 Consecutive Hours, Continuous Positive Airway Pressure (ICD-10-PCS; 2024-07-07)
PROC: 5A1955Z Respiratory Ventilation, Greater than 96 Consecutive Hours (ICD-10-PCS; principal; 2024-07-08)
PROC: 0BH17EZ Insertion of Endotracheal Airway into Trachea, Via Natural or Artificial Opening (ICD-10-PCS; 2024-07-08)
PROC: 5A0935A Assistance with Respiratory Ventilation, Less than 24 Consecutive Hours, High Flow/Velocity Cannula (ICD-10-PCS; 2024-07-08)
PROC: 4A00X4Z Measurement of Central Nervous Electrical Activity, External Approach (ICD-10-PCS; 2024-07-09)
PROC: 05H633Z Insertion of Infusion Device into Left Subclavian Vein, Percutaneous Approach (ICD-10-PCS; 2024-07-10)
PROC: B547ZZA Ultrasonography of Left Subclavian Vein, Guidance (ICD-10-PCS; 2024-07-10)
DX: J96.01 Acute respiratory failure with hypoxia (principal); J69.0 Pneumonitis due to inhalation of food and vomit; I50.23 Acute on chronic systolic (congestive) heart failure; G92.8 Other toxic encephalopathy; I63.89 Other cerebral infarction; J15.69 Pneumonia due to other Gram-negative bacteria; J44.1 Chronic obstructive pulmonary disease with (acute) exacerbation; I13.0 Hypertensive heart and chronic kidney disease with heart failure and stage 1 through stage 4 chronic kidney disease, or unspecified chronic kidney disease; D68.59 Other primary thrombophilia; J44.0 Chronic obstructive pulmonary disease with (acute) lower respiratory infection; N18.9 Chronic kidney disease, unspecified; J20.9 Acute bronchitis, unspecified; M06.9 Rheumatoid arthritis, unspecified; D50.9 Iron deficiency anemia, unspecified; E11.22 Type 2 diabetes mellitus with diabetic chronic kidney disease; Z20.822 Contact with and (suspected) exposure to COVID-19; K21.9 Gastro-esophageal reflux disease without esophagitis; I48.91 Unspecified atrial fibrillation; Z66 Do not resuscitate; I65.23 Occlusion and stenosis of bilateral carotid arteries; E87.6 Hypokalemia; E78.5 Hyperlipidemia, unspecified; G40.909 Epilepsy, unspecified, not intractable, without status epilepticus; J98.4 Other disorders of lung; R29.725 NIHSS score 25; I25.10 Atherosclerotic heart disease of native coronary artery without angina pectoris; Z99.81 Dependence on supplemental oxygen; Z71.51 Drug abuse counseling and surveillance of drug abuser; Z85.118 Personal history of other malignant neoplasm of bronchus and lung; Z86.718 Personal history of other venous thrombosis and embolism; Z51.5 Encounter for palliative care; Z74.01 Bed confinement status; Z86.73 Personal history of transient ischemic attack (TIA), and cerebral infarction without residual deficits; Z87.891 Personal history of nicotine dependence; Z95.1 Presence of aortocoronary bypass graft
CPT/HCPCS: 31500; 36415; 36573; 36600; 70496; 70498; 70551; 71045; 71250; 80048; 80053; 80061; 80202; 80305; 82375; 82805; 82962; 83036; 83605; 83735; 83880; 84100; 84145; 84443; 84478; 84484; 85025; 87070; 87077; 87186; 87420; 87426; 87804; 93005; 93880; 94002; 94003; 94070; 94640; 94660; 94664; 95816; 99285; A4606; A4663; A6261; C1725; J0360; J0696; J1650; J1815; J1885; J1940; J2003; J2185; J2270; J2405; J2543; J2704; J2919; J2920; J3105; J3370; J3480; J7060; J7512; J7626; Q9967